=== PATIENT | male | born 1945 | race African-American/Black ===

== ENCOUNTER 2016-09-28 12:27 | Emergency (ER) | payer OTHER, MEDICAID ==
[~2016-09-28] VITALS: Ht 177.8 cm; Wt 70.8 kg
[~2016-09-28 12:27] MED LIST: ACET-8331 GT; ASCO500S14 GT; ASPI81EC97 PO; BISA10SU1 RC; CHOL500010 GT; CRAN450C GT; DOCU-67 GT; FERR140T2 GT; FOLI5CAP GT; KEP500L GT; LACO50TA GT; LACT10SO11 GT; LAM200 GT; LAM25 GT; LANS30EC3 GT; MVII GT; OLAN2.5T1 GT; PHE6.25L GT; PHEN100C3 GT; ZONI50CA2 GT; [UNRECOGNIZED DRUG - CODE] GT
[2016-09-28 12:39] VITALS: BP 154/81
--- NOTE | 2016-09-28 12:50 | NUR ---
Patient ambulated to bed 7 with livestock caretaker. RN evaluating patient at bedside.
--- NOTE | 2016-09-28 12:52 | NUR ---
71/M BIB [facility] FOR EVALUATION OF G-TUBE MALFUNCTION. HX SEIZURE DISORDER, HTN, DEVELOPMENTAL DELAY. DENIES N/V/D; SKIN IS PINK/WARM/DRY; PT ACTING NEUROLOGICALLY AT BASELINE; AMBULATES WITH W/C. LUNGS CLEAR BL; HR EVEN AND REGULAR; [facility] DENIES PT HAS ANY FEVER, CP, SOB, OR COUGH AT THIS TIME; PATIENT STATES PAIN OF 0/10 AT THIS TIME; VSS; PATIENT POSITIONED FOR COMFORT; HOB ELEVATED; BEDRAILS UP X2; BED DOWN. ER MD MADE AWARE OF PT STATUS.
--- NOTE | 2016-09-28 12:52 | NUR ---
Note undone in EDM - 09/28/16 at 1407 by [email or web address] 71/M JOSE D [facility] FOR EVALUATION OF G-TUBE MALFUNCTION. HX SEIZURE DISORDER, HTN, DEVELOPMENTAL DELAY. DENIES N/V/D; SKIN IS PINK/WARM/DRY; AAOX4 WITH EVEN AND STEADY GAIT; LUNGS CLEAR BL; HR EVEN AND REGULAR; [facility] DENIES PT HAS ANY FEVER, CP, SOB, OR COUGH AT THIS TIME; PATIENT STATES PAIN OF 0/10 AT THIS TIME; VSS; PATIENT POSITIONED FOR COMFORT; HOB ELEVATED; BEDRAILS UP X2; BED DOWN. ER MD MADE AWARE OF PT STATUS.
--- NOTE | 2016-09-28 13:00 | NUR ---
Dr. Chau evaluating patient at bedside. Addendum: 09/28/16 at 1349 by [email or web address] Amendment undone in EDM - 09/28/16 at 1351 by MED1 GRAEME CHAU DID REPACEMENT G TUBE. PT TPLERATED PROCEDURE WELL.
--- NOTE | 2016-09-28 13:05 | NUR ---
Felicity olvera in EDM - 09/28/16 at 1352 by MED1 GRAEME CHAU DID REPACEMENT G TUBE. PT TPLERATED PROCEDURE WELL.
--- NOTE | 2016-09-28 13:05 | NUR ---
ER MD DR CHAU DID REPACEMENT G TUBE. PT TOLERATED PROCEDURE WELL.
--- NOTE | 2016-09-28 13:49 | NUR ---
X RAY AT BEDSIDE.
[2016-09-28 14:21] VITALS: BP 136/78
--- NOTE | 2016-09-28 14:21 | NUR ---
Patient discharged with v/s stable. Written and verbal after care instructions given and explained. Patient verbalized understanding. Wheel Chair Assisted with to car. All questions addressed prior to discharge. Advised to follow up with PMD.
== END 2016-09-28 14:21 | disposition home or self-care (01) ==
LOC: MED 12:27
DX: Z43.1 Encounter for attention to gastrostomy (principal); I10 Essential (primary) hypertension; Z79.82 Long term (current) use of aspirin; Z79.899 Other long term (current) drug therapy
CPT/HCPCS: 43760; 74241; 99284; Q0092

== ENCOUNTER 2017-08-15 16:59 | Emergency (ER) | payer OTHER, MEDICAID ==
[~2017-08-15] VITALS: Ht 167.6 cm; Wt 83.9 kg
[~2017-08-15 16:59] MED LIST changes: -CHOL500010 GT; +CHOL500021 GT; +DOCU-299 GT; -DOCU-67 GT; +POTA20SO16 GT; -[UNRECOGNIZED DRUG - CODE] GT
[2017-08-15 17:04] VITALS: BP 116/71
[2017-08-15 19:07] VITALS: BP 117/72
== END 2017-08-15 19:07 | disposition home or self-care (01) ==
LOC: MED 16:59
DX: Z43.1 Encounter for attention to gastrostomy (principal); I10 Essential (primary) hypertension; Z79.899 Other long term (current) drug therapy; Z79.82 Long term (current) use of aspirin
CPT/HCPCS: 43760; 74241; 99284; Q0092; Q9967

== ENCOUNTER 2017-10-17 06:25 | Emergency (ER) | payer OTHER, MEDICAID ==
[~2017-10-17] VITALS: Ht 170.2 cm; Wt 81.6 kg
[2017-10-17 06:34] VITALS: BP 156/100
--- NOTE | 2017-10-17 06:38 | NUR ---
TO BED # VIA W/C.
--- NOTE | 2017-10-17 06:41 | NUR ---
72/M BIB CAREGIVER FOR GTUBE REPLACEMENT. PER CG, GT FOUND DISLODGED AT 0530 TODAY. GT SITE WITHOUT ACTIVE BLEEDING NOTED. PT WITH 20FR GTUBE. PMH: ANEMIA, HTN, SEIZURE, GTUBE Addendum: 10/17/17 at 0650 by MEDNK OLD GTUBE WITH BALLOON INTACT
--- NOTE | 2017-10-17 06:41 | NUR ---
PT TAKEN TO BED 4
--- NOTE | 2017-10-17 06:55 | NUR ---
DR BISHOP PERFORMED GTUBE REPLACEMENT, PT GABBY WELL
--- NOTE | 2017-10-17 07:00 | NUR ---
Felicity olvera in [facility] - 10/17/17 [address] Jones evaluating patient at bedside.
--- NOTE | 2017-10-17 07:01 | NUR ---
RECEIVED REPORT FROM SILVANO FLORES. DR TOSCANO DID G TUBE REPLACEMENT .PT [id number] PROCEDURE WELL. A WAITING FOR X RAY. [facility] AT BEDSIDE.
--- NOTE | 2017-10-17 07:01 | NUR ---
Note may in EDM - 10/17/17 at 0716 by [facility] RECEIVED REPORT FROM SILVANO FLORES. DR TOSCANO DID G TUBE REPLACEMENT .PT TPLERATED PROCEDURE WELL. A WAITING FOR X RAY. [facility] AT BEDSIDE.
--- NOTE | 2017-10-17 07:16 | NUR ---
X RAY AT BEDSIDE.
--- NOTE | 2017-10-17 07:27 | NUR ---
Patient being reevaluated by DR TOSCANO at bedside.
[2017-10-17 07:34] VITALS: BP 169/89
--- NOTE | 2017-10-17 07:34 | NUR ---
Patient discharged with BP 169/89; MD MADE AWARE. Written and verbal after care instructions given and explained. Patient verbalized understanding. Wheel Chair Assisted with to car. All questions addressed prior to discharge. Advised to follow up with PMD.
== END 2017-10-17 07:34 | disposition home or self-care (01) ==
LOC: MED 06:25
DX: Z43.1 Encounter for attention to gastrostomy (principal); I10 Essential (primary) hypertension
CPT/HCPCS: 43760; 74018; 99284

== ENCOUNTER 2017-12-01 09:59 | Inpatient (IN) | payer OTHER, MEDICAID ==
[~2017-12-01] VITALS: Ht 177.8 cm; Wt 70.8 kg
[~2017-12-01 09:59] MED LIST changes: +ASPI81EC97 GT; -ASPI81EC97 PO
[2017-12-01 10:20] VITALS: BP 119/72
--- NOTE | 2017-12-01 10:36 | NUR ---
bib caregiver from [facility] Assisted with c/o abdomen distention and vomitting since today. Per caregiver, patient vomitted 6 times today. Caregiver denies diarrhea or recent fevers. G-tube in place with dressing. Copious yellow discharge noted to dressing. . SKIN IS PINK/WARM/DRY; LUNGS CLEAR BL; HR EVEN AND REGULAR; caregiver DENIES ANY FEVER, CP, SOB, OR COUGH AT THIS TIME; PATIENT sitting in his wheelchair, refused to stay in bed. caregiver at side. ER MD MADE AWARE OF PT STATUS.
[2017-12-01] MEDS ORDERED: NACL 0.9% 1,000 ML IV SCH ×2 (10:49→14:50)
[2017-12-01] MEDS ORDERED: ONDANSETRON 4 MG/2 ML VIAL IVP ONE (10:50)
[2017-12-01] MEDS ORDERED: FAMOTIDINE 20 MG/2 ML VIAL IVP ONE (10:50)
[2017-12-01] MEDS ORDERED: METOCLOPRAMIDE 10 MG/2 ML INJ VIAL IVP ONE (10:50)
--- NOTE | 2017-12-01 12:10 | NUR ---
PT TAKEN TO [facility] IN [facility]
[2017-12-01 14:03] LABS: BASOPHILS % (AUTO) 0.5 % (0.0-2.0); EOSINOPHILS # (AUTO) 0.2 K/uL (0-0.4); EOSINOPHILS % (AUTO) 2.3 % (0.0-4.0); HEMATOCRIT 37.7 % (36-52); HEMOGLOBIN 12.8 g/dL (12.0-18.0); LYMPHOCYTES # (AUTO) 1.7 K/uL (2.0-11.5); LYMPHOCYTES % (AUTO) 25.6 % (20.5-51.1); MEAN CORPUSCULAR HEMOGLOBIN 33 pg (27-31); MEAN CORPUSCULAR HGB CONC 34 g/dL (33-37); MEAN CORPUSCULAR VOLUME 95.7 fL (80-94); MONOCYTES # (AUTO) 0.7 K/uL (0.8-1.0); MONOCYTES % (AUTO) 9.7 % (1.7-9.3); NEUTROPHILS # (AUTO) 4.2 K/uL (1.8-7.7); NEUTROPHILS % (AUTO) 61.9 % (42.2-75.2); PLATELET COUNT (AUTO) 220 K/uL (140-450); RED BLOOD CELL COUNT(AUTO) 3.94 MIL/uL (4.20-6.10); RED CELL DISTRIBUTION WIDTH 12.7 % (11.6-13.7); WHITE BLOOD COUNT (AUTO) 6.8 K/uL (4.8-10.8)
[2017-12-01 14:39] LABS: MAGNESIUM 2.2 mg/dL (1.8-2.4); URIC ACID 4.7 mg/dL (2.6-7.2)
[2017-12-01] MEDS ORDERED: ACETAMINOPHEN 325 MG TAB PO PRN (14:50)
[2017-12-01] MEDS ORDERED: ZOLPIDEM 5 MG TAB PO PRN (14:50)
[2017-12-01] MEDS ORDERED: MORPHINE SULFATE 2 MG/ML SYR IVP PRN (14:50)
[2017-12-01] MEDS ORDERED: ONDANSETRON 4 MG/2 ML VIAL IM/IVP PRN (14:50)
[2017-12-01] MEDS ORDERED: DOCUSATE SODIUM 100 MG GELCAP PO PRN (14:50)
[2017-12-01] MEDS ORDERED: HYDROcodone/APAP 5/325 MG 1 TAB TAB PO PRN (14:50)
[2017-12-01] MEDS ORDERED: LORazepam 2 MG/ML VIAL IM/IVP PRN (14:50)
[2017-12-01 14:56] LABS: ACETONE, SERUM NEGATIVE (NEGATIVE)
--- NOTE | 2017-12-01 14:58 | NUR ---
RECEIVED REPORT FROM [facility]: GGT WILL DELAY. NOTIFIED DR ASCENCIO.
[2017-12-01] MEDS ORDERED: BISACODYL 10 MG SUPP RC PRN (15:00)
[2017-12-01] MEDS ORDERED: PROMETHAZINE 6.25 MG/5 ML ORASYR GT PRN (15:00)
[2017-12-01] MEDS ORDERED: BISACODYL 10 MG SUPP RC SCH (15:15)
--- NOTE | 2017-12-01 15:30 | NUR ---
PT TRANSFERRED TO ROOM 123B BY MARGI ACCOMPANIED WITH RN AND EMT, REPORT GIVEN TO RAINER. PT'S WHEELCHAIR ALSO WITH PT. ALL THE PERSONAL BELONGINGS WITH CAREGIVER.
--- NOTE | 2017-12-01 15:35 | NUR ---
RECEIVED PATIENT FROM ED VIA GURNEY, PT IS AAOX1, WHEELCHAIR BOUND, IV IS ON THE RIGHT SHOULDER, #24, PATENT, INTACT, FLUSHING WELL, PT HAS G-TUBE, SOME LEAKAGE NOTED AROUND THE DRESSING, SKIN IS INTACT, NO S/S OF RESPIRATORY DISTRESS OR DISCOMFORT NOTED, SAFETY/FALL/SEIZURE PRECAUTIONS ARE IN PLACE, CALL LIGHT WITHIN REACH, WILL CONTINUE TO MONITOR.
[2017-12-01 16:00] VITALS: BP 159/83
[2017-12-01 16:16] LABS: ANION GAP 14.4 (8-16); CARBON DIOXIDE 26.6 mmol/L (21-32); CHLORIDE 102 mmol/L (98-107); CREATININE 1.3 mg/dL (0.7-1.3); GLUCOSE 111 mg/dL (74-106); SODIUM SERUM 139 mmol/L (136-145); TOTAL BILIRUBIN 0.3 mg/dL (0.0-1.0); UREA NITROGEN, BLOOD 13 mg/dL (7-18)
[2017-12-01 16:17] LABS: ALBUMIN 3.7 g/dL (3.4-5.0); AMYLASE 125 U/L (25-115); ASPARTATE AMINOTRANSFERASE 26 U/L (15-37)
[2017-12-01 16:18] LABS: LIPASE 205 U/L (73-393)
[2017-12-01 16:23] LABS: CHOL/HDL RATIO 2.2 (1-4.5); PHOSPHORUS 3.5 mg/dL (2.5-4.9); THYROID STIMULATING HORMONE 2.5 uIU/mL (0.34-3.74)
[2017-12-01] MEDS ORDERED: MAGNESIUM CITRATE 300 ML BTL PO SCH (17:00)
[2017-12-01] MEDS ORDERED: PHENYTOIN 100 MG CAPER PO SCH (17:00)
[2017-12-01] MEDS: LACTULOSE 20 GM/30 ML UDC GT SCH (18:17)
[2017-12-01] MEDS: METOCLOPRAMIDE 10 MG/2 ML INJ VIAL IVP SCH (18:18)
[2017-12-01] MEDS: SENNA 8.6 MG TAB PO SCH (18:20)
--- NOTE | 2017-12-01 19:25 | NUR ---
RECEIVED FROM AM RN IN BED . WATCHING TV. NO RESTLESSNESS NOTED. NO REPORTED VOMITING EPISODE SINCE ADMISSION. CALL LIGHT WITH IN REACH. NOT TALKING AT THIS TIME. PT. HX. OF MENTAL RETARDATION, CVA AND PSYCHOSIS. ON SEIZURE PRECAUTION. WITH PADDED BED RAILS. IVF SITE TO RIGHT SHOULDER IN PLACE AND NO INFILTRATION. AFEBRILE. TELEMETRY MONITORING. NEEDS WILL BE ANTICIPATED AND WILL BE MET. WILL BE TURNED Q 2H.
--- NOTE | 2017-12-01 19:32 | NUR ---
ENDORSED PT TO HARDWOOD FLOORING SPECIALIST NURSE FOR CONTINUITY OF CARE. PT STABLE AT THIS TIME.
[2017-12-01 20:26] VITALS: BP 153/79
[2017-12-01] MEDS: lamoTRIgine 25 MG TAB GT SCH (20:35)
[2017-12-01] MEDS: POLYETHYLENE GLYCOL 17 GM/PKT PO SCH (20:36)
[2017-12-01] MEDS: levETIRAcetam 100 MG/ML ORASYR GT SCH (20:36)
[2017-12-01 20:54] LABS: GAMMA GLUTAMYL TRANSFERASE 348 U/L (7-51)
[2017-12-01] MEDS ORDERED: DOCUSATE 100 MG/10 ML UDC PO SCH (21:00)
--- NOTE | 2017-12-01 21:35 | NUR ---
CALLED MATTHEW CARLOS FOR CONSENT RE: GT RE-INSERTION BY MD SINGH. ANSWERING PHONE FULL. CALLED RODRIGO. SÁNCHEZITY CAREGIVER, ANSWERING MACHINE TOO. CALLED VENECIA FRAZIER AND WAS ABLE TO ANSWER . STATED THAT HE IS THE VISITING NURSE OF PT. AND THAT THE SISTER IS REALLY NOT PICKING UP PHONE. "I AM ABLE TO GIVE CONSENT FOR HIM". WILL FOLLOW UP IN AM WITH QUALITY TECH.
--- NOTE | 2017-12-01 21:57 | NUR ---
CALLED SISTER SANDI CHENG AGAIN. THIS TIME SHE ANSWERED PHONE AND GAVE TELEPHONE CONSENT FOR GT RE-INSERTION.
--- NOTE | 2017-12-01 22:30 | NUR ---
PT. AWAKE AND WATCHING TV. TURNED TO SIDES .PILLOW SUPPORT TO PRESSURE AREAS. CALL LIGHT WITH IN REACH. BED ALARM ON. TELEMETRY MONITORING. FLACC 0-
[2017-12-02] VITALS (7 sets, daily range): BP systolic 123–151; BP diastolic 69–84
--- NOTE | 2017-12-02 00:10 | NUR ---
PT. TURNED TO SIDES BY CNAS. KEPT CLEAN AND DRY. TELEMETRY MONITORING. PILLOW SUPPORT TO PRESSURE AREAS.
--- NOTE | 2017-12-02 01:26 | NUR ---
PT. SLEEPING AT THIS TIME. NO RESTLESSNESS.
[2017-12-02] MEDS: METOCLOPRAMIDE 10 MG/2 ML INJ VIAL IVP SCH ×4 (01:42→17:25)
--- NOTE | 2017-12-02 04:09 | NUR ---
PT. TURNED BY CNAS Q 2H. FLACC 0-. TELEMETRY MONITORING. NO NOTED VOMITING. NO RESTLESSNESS NOTED. KEPT CLEAN AND DRY. NPO EXCEPT MEDICATIONS STATUS.
--- NOTE | 2017-12-02 06:04 | NUR ---
BLOOD WORKS DONE BY FORESTRY AID TECHNICIAN. FLACC 0-. TELEMETRY MONITORING. IVF SITE NO INFILTRATION NOTED. NO VOMITING THIS SHIFT. HAD BM THIS AM. NEEDS ANTICIPATED AND MET. TURNED Q 2H. TOTAL CARE.
--- NOTE | 2017-12-02 06:11 | NUR ---
PT. PER CNAS HAD A BIG SOFT BOWEL MOVEMENT FOR THIS SHIFT. NEEDS ANTICIPATED AND MET.
[2017-12-02 06:43] LABS: EOSINOPHILS # (AUTO) 0.3 K/uL (0-0.4); HEMOGLOBIN 14.2 g/dL (12.0-18.0); MONOCYTES # (AUTO) 0.8 K/uL (0.8-1.0); RED BLOOD CELL COUNT(AUTO) 4.29 MIL/uL (4.20-6.10); WHITE BLOOD COUNT (AUTO) 6.4 K/uL (4.8-10.8)
[2017-12-02 06:49] LABS: BASOPHILS # (AUTO) 0.1 K/uL (0.00-0.22); BASOPHILS % (AUTO) 1.2 % (0.0-2.0); EOSINOPHILS % (AUTO) 5.3 % (0.0-4.0); HEMATOCRIT 41.5 % (36-52); LYMPHOCYTES # (AUTO) 2.1 K/uL (2.0-11.5); LYMPHOCYTES % (AUTO) 32.9 % (20.5-51.1); MEAN CORPUSCULAR HEMOGLOBIN 33 pg (27-31); MEAN CORPUSCULAR HGB CONC 34 g/dL (33-37); MEAN CORPUSCULAR VOLUME 96.6 fL (80-94); MONOCYTES % (AUTO) 11.7 % (1.7-9.3); NEUTROPHILS # (AUTO) 3.2 K/uL (1.8-7.7); NEUTROPHILS % (AUTO) 48.9 % (42.2-75.2); PLATELET COUNT (AUTO) 212 K/uL (140-450); RED CELL DISTRIBUTION WIDTH 12.7 % (11.6-13.7)
--- NOTE | 2017-12-02 07:20 | NUR ---
RECEIVED REPORT FROM THE MOTORCYCLE SERVICE TECHNICIAN NURSE AT BEDSIDE FOR CONTINUITY OF CARE. PT IS AWAKE. INTRODUCED MYSELF AND UPDATED THE BOARD. PT APHASIC W/ MENTAL DELAY. HE HAS HIS HELMET ON. IV ON R SHOULDER 24G, NS AT 60ML INFUSING. V/S WITHIN NORMAL RANGE. DENIES PAIN. WHEELCHAIR AT BEDSIDE. PT HAS A LEAKING GTUBE PER MOTORCYCLE SERVICE TECHNICIAN. PT IS NPO EXCEPT MEDS FOR GTUBE REINSERTION TODAY. PT ALSO HAS FNS CONSULT AND URINE COLLECTION FOR URINE ANALYSIS. WILL NEED TO STRAIGHT CATH. SKIN INTACT. WILL CONTINU TO MONITOR PT.
[2017-12-02 07:23] LABS: ANION GAP 14.4 (8-16); CARBON DIOXIDE 24.1 mmol/L (21-32); CHLORIDE 105 mmol/L (98-107); CREATININE 0.9 mg/dL (0.7-1.3); GLUCOSE 99 mg/dL (74-106); POTASSIUM 3.5 mmol/L (3.5-5.1); SODIUM SERUM 140 mmol/L (136-145); UREA NITROGEN, BLOOD 8 mg/dL (7-18)
[2017-12-02 07:27] LABS: MAGNESIUM 2.3 mg/dL (1.8-2.4); PHOSPHORUS 3.2 mg/dL (2.5-4.9)
[2017-12-02] MEDS ORDERED: OLANZapine 2.5 MG TAB GT SCH (09:00)
[2017-12-02] MEDS ORDERED: SENNA 8.6 MG TAB PO SCH (09:00)
[2017-12-02] MEDS ORDERED: LANSOPRAZOLE 30 MG CAPDR GT SCH (09:00)
[2017-12-02] MEDS ORDERED: LACTULOSE 20 GM/30 ML UDC GT SCH (09:00)
[2017-12-02] MEDS: DEXT 5% /NACL 0.9% 1,000 ML IV SCH (09:59)
[2017-12-02] MEDS: PHENYTOIN 100 MG/4 ML UDC GT SCH ×4 (10:00→17:24)
[2017-12-02] MEDS: LACTULOSE 20 GM/30 ML UDC GT SCH ×4 (10:00→17:25)
[2017-12-02] MEDS: levETIRAcetam 100 MG/ML ORASYR GT SCH ×2 (10:00→20:42)
[2017-12-02] MEDS: lamoTRIgine 25 MG TAB GT SCH ×2 (10:01→20:42)
[2017-12-02] MEDS: POLYETHYLENE GLYCOL 17 GM/PKT PO SCH (10:01)
[2017-12-02] MEDS: TAMSULOSIN 0.4 MG CAP GT SCH (10:02)
[2017-12-02] MEDS: SENNA 8.6 MG TAB PO SCH ×4 (10:07→17:25)
--- NOTE | 2017-12-02 10:20 | NUR ---
ADMINISTERED MORNING MEDS VIA GTUBE. CHECKED FOR PLACEMENT, RESIDUAL-0, PATENCY. SOME OF THE MEDS WEREN'T AVAILABLE IN THE [facility], HAD TO GO TO THE PHARMACY TO GET MEDS. REASON WHY MEDS WERE GIVEN LATE. PT TOLERATED WELL. WILL CONTINUE TO MONITOR PT.
--- NOTE | 2017-12-02 10:43 | NUR ---
PATIENT HAS BEEN SCREENED AND CATEGORIZED HIGH NUTRITION RISK. PATIENT WILL BE SEEN WITHIN 1-2 DAYS OF ADMISSION. 12/02/17 12/03/[address]
[2017-12-02] MEDS ORDERED: VITD1000 GT (11:43)
[2017-12-02] MEDS ORDERED: AMLO2.5T GT (11:43)
[2017-12-02] MEDS ORDERED: MIRABULK GT (11:43)
[2017-12-02] MEDS ORDERED: ATOR20TA40 PO (11:45)
--- NOTE | 2017-12-02 12:35 | NUR ---
DR. SINGH IS HERE. ASSESSED THE GTUBE. REMOVED THE OLD GTUBE AND REINSERTED THE NEW GTUBE. WILL ORDER KUB AND WILL AWAIT RESULTS TO GET THE GO AHEAD TO USE THE GTUBE. GAVE REGLAN. WILL HOLD [id number] MEDS AND AWAIT XRAY RESULTS.
[2017-12-02 13:08] LABS: BARBITURATE, URINE NEG. ng/ml (NEG <=200); BENZODIAZEPINE, URINE NEG. ng/mL (NEG <=200); CANNABINOID, URINE NEG. ng/mL (NEG <=50); COCAINE, URINE NEG. ng/mL (NEG <=300); OPIATE, URINE NEG. ng/mL (NEG <=2000); PHENCYCLIDINE SCREEN,URINE NEG. ng/mL (NEG <=25)
[2017-12-02 13:16] LABS: BILIRUBIN,URINE NEGATIVE (NEGATIVE); BLOOD, URINE NEGATIVE (NEGATIVE); LEUKOCYTE ESTERASE ,URINE NEGATIVE (NEGATIVE); NITRITE, URINE NEGATIVE (NEGATIVE); PH,URINE 7.5 (5.0-9.0); UGLUCOSE NEGATIVE (NEGATIVE)
[2017-12-02 13:17] LABS: APPEARANCE,URINE SLIGHTLY HAZY (CLEAR); COLOR,URINE YELLOW (YELLOW)
[2017-12-02 13:18] LABS: RBC,URINE NONE SEEN /HPF (0-5)
--- NOTE | 2017-12-02 14:29 | NUR ---
CALLED [facility] TO FIND OUT WHEN THEY WERE PLANNING TO DO THE KUB TO CHECK PLACEMENT OF GTUBE. THEY WILL BE COMING NOW. WILL CONTINUE TO MONITOR PT.
[2017-12-02] MEDS ORDERED: RANI150C GT (14:46)
--- NOTE | 2017-12-02 15:46 | NUR ---
12/02/17 RD INITIAL ASSESSMENT COMPLETED PLEASE REFER TO NUTRITION ASSESSMENT UNDER CARE ACTIVITY FOR ESTIMATED NUTRITIONAL NEEDS. 1. WHEN/IF MEDICALLY STABLE TO BEGIN NUTRITION, CONSIDER ADVANCING TF TOLERATED TO JEVITY 1.2 @ GOAL RATE 65ML/H WITH 130 ML H2O FLUSH Q4H --THIS WILL PROVIDE 1872 KCAL (100% OF ESTIMATED ENERGY REQUIREMENTS), 86.58 GM PRO (101% OF ESTIMATED PROTEIN REQUIREMENTS), AND 1778 ML FLUIDS --BEGIN TF AT 20ML/H AND INCREASE BY 10ML Q4-6H UNTIL GOAL RATE ACHIEVED 2. RD TO FOLLOW-UP 2-3 DAYS, HIGH RISK DARREN ZAMARRIPA RD
--- NOTE | 2017-12-02 17:34 | NUR ---
ORDERS FOR USE OF GTUBE ENTERED. ADMINISTERED [id number] MEDS. CHECKED FOR PLACEMENT, RESIDUAL-0, AND PATENCY. PT TOLERATED WELL. WILL START FEEDING SOON FNS BRINGS IT TO THE FLOOR. JEVITY 1.2 START W/ 10ML/HR AND 130ML OF H20 FOR FLUSH Q 4 HRS. INCREASE FEEDING EVERY FEW HOURS UNTIL REACHING 65ML/HR.
--- NOTE | 2017-12-02 19:25 | NUR ---
RECEIVED FROM AM RN IN BED. AWAKE AND EYES OPEN. NONE VERBAL. TOTAL CARE. PT. NEEDS WILL BE ANTICIPATED AND WILL BE MET. NEW GT INSERTED BY MD SINGH IN AM SHIFT. GT FEEDING STARTED AT 20 ML AND INFUSING AT THIS TIME . BED ALARM ON. AFEBRILE.
--- NOTE | 2017-12-02 19:30 | NUR ---
ENDORSED PT TO THE LEATHER PRODUCTION MACHINE OPERATOR NURSE AT BEDSIDE FOR CONTINUITY OF CARE. PT IS IN STABLE CONDITION. CALLED RAILWAY TRACTION LINE WORKER TO BRING A NEW FEEDING PUMP. THIS ONE IN THE ROOM IS BROKEN. NEW ONE AT THE NURSES STATION. ENDORSED IT TO LEATHER PRODUCTION MACHINE OPERATOR.
--- NOTE | 2017-12-02 22:48 | NUR ---
TURNED TO SIDES BY WOOD ROUTER AND NURSE Q 2H. HOB UP 30 DEGREES FOR ASPIRATION PRECAUTIONS. NEEDS WILL BE ANTICIPATED AND MET. TOTAL CARE. NO RESIDUAL AT THIS TIME FROM GT FEEDING.
[2017-12-03] MEDS: DEXT 5% /NACL 0.9% 1,000 ML IV SCH ×2 (00:05→04:45)
[2017-12-03] MEDS: METOCLOPRAMIDE 10 MG/2 ML INJ VIAL IVP SCH ×4 (01:13→17:50)
--- NOTE | 2017-12-03 01:21 | NUR ---
SLEEPING AT THIS TIME. FLACC O-. NO RESTLESSNESS. HOB UP 30 DEGREES FOR ASPIRATION PRECAUTIONS. TURNED TO SIDES Q 2H.
[2017-12-03 05:20] VITALS: BP 148/70
--- NOTE | 2017-12-03 06:16 | NUR ---
SLEPT WELL THIS SHIFT. TURNED Q 2H BY HEAD OF MARKETING AND NURSE. HOB UP 30 DEGREES FOR ASPIRATION PRECAUTIONS. RESIDUAL FROM GT 10 ML AT THIS TIME. PT. AT 50 ML /H OF JEVITY 1.2 . TOLERATING FEEDING WELL. NO VOMITING NOTED THIS SHIFT.
[2017-12-03 07:07] LABS: BASOPHILS % (AUTO) 0.5 % (0.0-2.0); EOSINOPHILS # (AUTO) 0.5 K/uL (0-0.4); EOSINOPHILS % (AUTO) 6.1 % (0.0-4.0); HEMATOCRIT 41.3 % (36-52); HEMOGLOBIN 14.1 g/dL (12.0-18.0); LYMPHOCYTES # (AUTO) 1.9 K/uL (2.0-11.5); LYMPHOCYTES % (AUTO) 23.7 % (20.5-51.1); MEAN CORPUSCULAR HEMOGLOBIN 33 pg (27-31); MEAN CORPUSCULAR HGB CONC 34 g/dL (33-37); MEAN CORPUSCULAR VOLUME 96.9 fL (80-94); MONOCYTES % (AUTO) 12.7 % (1.7-9.3); NEUTROPHILS # (AUTO) 4.7 K/uL (1.8-7.7); PLATELET COUNT (AUTO) 238 K/uL (140-450); RED BLOOD CELL COUNT(AUTO) 4.27 MIL/uL (4.20-6.10); RED CELL DISTRIBUTION WIDTH 12.8 % (11.6-13.7); WHITE BLOOD COUNT (AUTO) 8.2 K/uL (4.8-10.8)
--- NOTE | 2017-12-03 07:15 | NUR ---
RECEIVED REPORT FROM NIGHTSHIFT NURSE AT BEDSIDE. PATIENT IS APHASIC. PATIENT PRESENTS IN SEMI-FOWLERS TO HIGH-FOWLERS POSITION WITH A HELMET ON. SEIZURE PRECAUTIONS IN PLACE. FLACC SCORE IS 0 AT THIS TIME. NO RESPIRATORY DISTRESS NOTED. PATIENT HAS A 24 G IV NOTED ON HIS RIGHT UPPER ARM RUNNING D5 NS AT 60 ML/HR. PATIENT HAS G-TUBE IN PLACE WITH TUBE FEED RUNNING AT 50 ML/HR. UPDATED BOARD IN PATIENT'S ROOM. LOWERED BED TO LOWEST SETTING. BED ALARM ACTIVE. WILL CONTINUE TO MONITOR PATIENT. Addendum: 12/03/17 at 0811 by Darvin Dalton II, RN PATIENT ABLE TO SPEAK. PATIENT ALERT AND ORIENTED X2-3
[2017-12-03 08:00] VITALS: BP 155/77
--- NOTE | 2017-12-03 08:05 | NUR ---
INCREASED PATIENT'S FEEDING TO 60 ML/HR. PATIENT TOLERATING WELL.
[2017-12-03] MEDS: ATORVASTATIN 20 MG TAB GT SCH (08:14)
[2017-12-03] MEDS: CHOLECALCIFEROL 1,000 IU TAB GT SCH (08:14)
[2017-12-03] MEDS: FERROUS SULFATE 300 MG/5 ML UDC GT SCH (08:14)
[2017-12-03] MEDS: FOLIC ACID 1 MG TAB GT SCH (08:14)
[2017-12-03] MEDS: LACTOBACILLUS RHAMNOSUS GG 1 EACH CAP PO SCH (08:14)
[2017-12-03] MEDS: ASPIRIN 81 MG TAB.CHEW GT SCH (08:15)
[2017-12-03] MEDS: amLODIPine 5 MG TAB GT SCH (08:15)
[2017-12-03] MEDS: TAMSULOSIN 0.4 MG CAP GT SCH (08:15)
[2017-12-03] MEDS: lamoTRIgine 25 MG TAB GT SCH ×2 (08:15→20:30)
[2017-12-03] MEDS: LACTULOSE 20 GM/30 ML UDC GT SCH ×3 (08:16→16:09)
[2017-12-03] MEDS: levETIRAcetam 100 MG/ML ORASYR GT SCH ×2 (08:16→20:30)
--- NOTE | 2017-12-03 08:16 | NUR ---
PATIENT TOOK AM MEDICATIONS. PATIENT TOLERATED WELL.
[2017-12-03] MEDS: PHENYTOIN 100 MG/4 ML UDC GT SCH ×3 (08:17→16:09)
[2017-12-03 08:27] LABS: ANION GAP 11.1 (8-16); CARBON DIOXIDE 27.5 mmol/L (21-32); CHLORIDE 106 mmol/L (98-107); GLUCOSE 118 mg/dL (74-106); POTASSIUM 3.6 mmol/L (3.5-5.1); SODIUM SERUM 141 mmol/L (136-145); UREA NITROGEN, BLOOD 7 mg/dL (7-18)
[2017-12-03 08:36] LABS: MAGNESIUM 2.3 mg/dL (1.8-2.4); PHOSPHORUS 2.8 mg/dL (2.5-4.9)
[2017-12-03] MEDS: POLYETHYLENE GLYCOL 17 GM/PKT GT SCH (09:00)
[2017-12-03] MEDS: SENNA 8.6 MG TAB PO SCH ×3 (09:00→16:09)
--- NOTE | 2017-12-03 10:05 | NUR ---
PATIENT RESTING AT THIS TIME. NO DISTRESS NOTED. WILL CONTINUE TO MONITOR PATIENT.
[2017-12-03] MEDS: NACL 0.9% 1,000 ML IV SCH (11:59)
[2017-12-03 12:00] VITALS: BP 151/81
--- NOTE | 2017-12-03 12:20 | NUR ---
INCREASED PATIENT'S TUBE FEEDING TO 65 ML/HR. PATIENT TOLERATING WELL.
--- NOTE | 2017-12-03 14:25 | NUR ---
PATIENT ASLEEP AT THIS TIME. NO DISTRESS NOTED. WILL CONTINUE TO MONITOR PATIENT.
--- NOTE | 2017-12-03 17:00 | NUR ---
PATIENT ASLEEP AT THIS TIME. NO DISTRESS NOTED. WILL CONTINUE TO MONITOR PATIENT.
[2017-12-03 18:00] VITALS: BP 149/80
--- NOTE | 2017-12-03 19:25 | NUR ---
GAVE REPORT TO NIGHTSHIFT NURSE AT BEDSIDE. PATIENT IN STABLE CONDITION.
--- NOTE | 2017-12-03 19:26 | NUR ---
RECEIVED REPORT FROM DAYSSCFT NURSE AT BEDSIDE FOR CONTINUITY OF CARE. PT AAOX2. PT IV NOTED RIGHT CLOSE TO ARMPIT NS AT 20ML/HR. PT IS INTELLECTUALLY DISABLED. HAS G-TUBE WITH TUBE FEEDING FORMULA JEVITY 1.2 RUNNING AT 65ML/HR WITH 130 H2O Q4H. BED LOWERED BED ALARM ACTIVATED. CALL LIGHT WITHIN REACH WILL CONTINUE TO MONITOR.
[2017-12-03 20:00] VITALS: BP 155/84
[2017-12-04] VITALS: BP 141/71
[2017-12-04] MEDS: METOCLOPRAMIDE 10 MG/2 ML INJ VIAL IVP SCH ×4 (01:15→17:24)
--- NOTE | 2017-12-04 01:30 | NUR ---
ADMIN NEW FEEDING FORMULA TO GTUBE. PT FEEDING IS AT GOAL SET: 65ML/HR FEEDING FORMULA & H20 130 Q4H. WILL CONTINUE TO MONITOR.
[2017-12-04 04:00] VITALS: BP 158/91
--- NOTE | 2017-12-04 07:11 | NUR ---
RECEIVED REPORT FROM NIGHTSHIFT NURSE AT BEDSIDE. PATIENT PRESENTS IN SEMI-FOWLERS POSITION. NO DISTRESS NOTED FROM PATIENT. FLACC SCORE 0. PATIENT HAS A GTUBE IN PLACE RUNNING 65 ML/HR JEVITY 1.2. G-TUBE FLUSHING WELL AND PATENT. PATIENT HAS AN IV NOTED ON HIS RIGHT UPPER ARM RUNNING NORMAL SALINE AT 20 ML/HR. PATIENT IS ON SEIZURE PRECAUTION. LOWERED BED TO LOWEST SETTING. UPDATED BOARD IN PATIENT'S ROOM. BED ALARM ACTIVE. PATIENT'S ROOM NEAR THE NURSING STATION. WILL CONTINUE TO MONITOR PATIENT.
--- NOTE | 2017-12-04 07:17 | NUR ---
ENDORSED PLAN OF CARE TO DAYSHIFT NURSE FOR CONTINUITY OF CARE.
[2017-12-04 08:00] VITALS: BP 155/87
[2017-12-04] MEDS: POLYETHYLENE GLYCOL 17 GM/PKT GT SCH (09:00)
[2017-12-04] MEDS: PHENYTOIN 100 MG/4 ML UDC GT SCH ×3 (09:11→16:11)
[2017-12-04] MEDS: FERROUS SULFATE 300 MG/5 ML UDC GT SCH (09:11)
[2017-12-04] MEDS: levETIRAcetam 100 MG/ML ORASYR GT SCH ×2 (09:11→21:08)
[2017-12-04] MEDS: lamoTRIgine 25 MG TAB GT SCH ×2 (09:11→21:09)
[2017-12-04] MEDS: CHOLECALCIFEROL 1,000 IU TAB GT SCH (09:11)
[2017-12-04] MEDS: LACTULOSE 20 GM/30 ML UDC GT SCH ×3 (09:11→16:11)
[2017-12-04] MEDS: TAMSULOSIN 0.4 MG CAP GT SCH (09:12)
[2017-12-04] MEDS: amLODIPine 5 MG TAB GT SCH (09:12)
[2017-12-04] MEDS: ATORVASTATIN 20 MG TAB GT SCH (09:13)
[2017-12-04] MEDS: ASPIRIN 81 MG TAB.CHEW GT SCH (09:13)
[2017-12-04] MEDS: LACTOBACILLUS RHAMNOSUS GG 1 EACH CAP PO SCH (09:13)
[2017-12-04] MEDS: FOLIC ACID 1 MG TAB GT SCH (09:14)
--- NOTE | 2017-12-04 09:26 | NUR ---
PATIENT TOOK ALL AM MEDICATIONS. PATIENT TOLERATED WELL.
[2017-12-04] MEDS ORDERED: [UNRECOGNIZED DRUG - CODE] PO (10:33)
[2017-12-04] MEDS ORDERED: LACT1.4C PO (10:33)
--- NOTE | 2017-12-04 10:50 | NUR ---
Medical Staff Manager Notes: I attempted to contact patient's Sister Mary Liu at . No response therefore; These medical writer left her contact Information, and a MGS requesting a call back.
--- NOTE | 2017-12-04 11:20 | NUR ---
PATIENT RESTING. NO DISTRESS NOTED.
[2017-12-04 12:00] VITALS: BP 148/68
[2017-12-04] MEDS: SENNA 8.6 MG TAB PO SCH ×3 (12:05→16:11)
[2017-12-04] MEDS: NACL 0.9% 1,000 ML IV SCH (12:16)
--- NOTE | 2017-12-04 13:28 | NUR ---
PATIENT RESTING AT THIS TIME. NO DISTRESS NOTED. WILL CONTINUE TO MONITOR PATIENT.
[2017-12-04 16:00] VITALS: BP 138/75
--- NOTE | 2017-12-04 16:20 | NUR ---
NO SIGNS OF DISTRESS. WILL CONTINUE TO MONITOR PATIENT.
--- NOTE | 2017-12-04 18:22 | NUR ---
PATIENT RESTING AT THIS TIME. NO DISTRESS NOTED. WILL CONTINUE TO MONITOR PATIENT.
--- NOTE | 2017-12-04 19:27 | NUR ---
GAVE REPORT TO NIGHTSHIFT NURSE AT BEDSIDE. PATIENT IN STABLE CONDITION.
--- NOTE | 2017-12-04 19:28 | NUR ---
RECEIVED PT IN STABLE CONDITION FROM AM NURSE. MED SURG PT. BEDREST. WITH HELMET FOR SEIZURE PRECAUTION. NO S/S OF ANY DISCOMFORT NOR PAIN NOTED. WITH IVF INFUSING WELL ON THE LT FA#24. CLEAR AND PATENT. GETTING GT FEEDING JEVITY 1.2 ANN MARIE @65 ML /HR. TOLERATING WELL. INCONTINENT OF STOOL AND URINE. BED ON LOW POSITION. CALL LIGHT PLACED WITHIN EASY REACH. FREQUENT ROUNDS NEEDED. WILL CONTINUE TO MONITOR.
--- NOTE | 2017-12-04 21:20 | NUR ---
GT FEEDING TOLERATING WELL. NEW JEVITY 1.2 ANN MARIE JUST STARTED. NO RESIDUAL NOTED.
[2017-12-05] MEDS: METOCLOPRAMIDE 10 MG/2 ML INJ VIAL IVP SCH ×2 (00:23→06:53)
[2017-12-05 00:27] VITALS: BP 153/88
--- NOTE | 2017-12-05 01:00 | NUR ---
PT HAD A LARGE LOOSE BM IN DARK GREENISH COLOR. CLEANED AND KEPT DRY. REPOSITIONED FOR COMFORT.
--- NOTE | 2017-12-05 02:30 | NUR ---
PT IS SLEEPING AT THIS TIME. NO S/S OF ANY DISCOMFORT NOR DISTRESS NOTED.
--- NOTE | 2017-12-05 04:30 | NUR ---
PTM IS ASLEEP. NO S/S OF ANY DISCOMFORT NOTED. WILL CONTINUE TO MONITOR.
--- NOTE | 2017-12-05 06:50 | NUR ---
THIS TIME PT IS AWAKE. WITH NO S/S OF ANY DISTRESS NOTED.
--- NOTE | 2017-12-05 07:33 | NUR ---
ENDORSED PT IN A STABLE CONDITION TO AM NURSE.
--- NOTE | 2017-12-05 07:35 | NUR ---
RECEIVED BEDSIDE REPORT FROM SECURITY PATROL DRIVER NURSE. PATIENT IS SLEEPING. NO SIGNS OF DISTRESS ON ROOM AIR. HE HAS A HELMET FOR SEIZURES. G TUBE IS CLEAN, DRY AND INTACT. INFUSING JEVITY AT 65ML/HR W WATER FLUSH OF 130 Q4HRS. SKIN IS INTACT. PATIENT IS INCONTINENT. HE HAD 3 LOOSE STOOLS LAST NIGHT. L FA 24G INFUSING NS AT 20. CLEAN, DRY AND INTACT. PATIENT UNABLE TO AMBULATE. HE IS CONTRACTED FROM HX CVA. FALL RISK IN PLACE. SEIZURE PRECAUTIONS IN PLACE. BED IN LOW POSITION. CALL LIGHT WITHIN REACH. WILL CONTINUE TO MONITOR
[2017-12-05] MEDS ORDERED: [UNRECOGNIZED DRUG - CODE] PO (07:59)
[2017-12-05 08:00] VITALS: BP 144/81
[2017-12-05] MEDS: POLYETHYLENE GLYCOL 17 GM/PKT GT SCH (09:00)
[2017-12-05] MEDS: lamoTRIgine 25 MG TAB GT SCH (09:00)
[2017-12-05] MEDS: SENNA 8.6 MG TAB PO SCH (09:00)
[2017-12-05] MEDS: LACTULOSE 20 GM/30 ML UDC GT SCH (09:00)
[2017-12-05] MEDS: amLODIPine 5 MG TAB GT SCH (09:36)
[2017-12-05] MEDS: ASPIRIN 81 MG TAB.CHEW GT SCH (09:36)
[2017-12-05] MEDS: FOLIC ACID 1 MG TAB GT SCH (09:37)
[2017-12-05] MEDS: LACTOBACILLUS RHAMNOSUS GG 1 EACH CAP PO SCH (09:37)
[2017-12-05] MEDS: FERROUS SULFATE 300 MG/5 ML UDC GT SCH (09:37)
[2017-12-05] MEDS: CHOLECALCIFEROL 1,000 IU TAB GT SCH (09:37)
[2017-12-05] MEDS: ATORVASTATIN 20 MG TAB GT SCH (09:38)
[2017-12-05] MEDS: TAMSULOSIN 0.4 MG CAP GT SCH (09:38)
[2017-12-05] MEDS: PHENYTOIN 100 MG/4 ML UDC GT SCH (09:38)
[2017-12-05] MEDS: levETIRAcetam 100 MG/ML ORASYR GT SCH (09:38)
--- NOTE | 2017-12-05 09:48 | NUR ---
CHECKED GTUBE FOR PLACEMENT USING SWOOSH. SWOOSH IS HEARD. NO RESIDUAL. CRUSHED ALL MEDS AND ADMINISTERED. FLUSHED. DID NOT GIVE STOOL SOFTNER/LAXATIVE BECAUSE PATIENT HAS HAD LOOSE STOOLS. BED IN LOW POSITION. WILL CONTINUE TO MONITOR THE PATIENT
--- NOTE | 2017-12-05 10:00 | NUR ---
Chorus Dancer Notes: I contacted Patient's CustodialManager Truck Mr. Blayne Seth at to inform him that patient is ready for discharge today 12/05/17 and to coordinate Patient's sampler pickup time by long-term transportation. Mr. Cisneros agreed and stated that he can come sampler pickup Patient at about 11:30am today. I thanked him for his information and ended the call. MARK BERMUDEZ was made aware.
--- NOTE | 2017-12-05 10:30 | NUR ---
TRIED CALLING SISTER. SHE DID NOT ANSWER. FREDDIE THE COPY CHASER SAID HE WILL KEEP HER UPDATED.
--- NOTE | 2017-12-05 11:40 | NUR ---
GAVE BEDSIDE REPORT TO FREDDIE, HIS SCIENCE INTERPRETER, PATIENT IN STABLE CONDITION. HE LEFT W HIS WALKER. EDUCATED FREDDIE AND PATIENT ON DISEASE, ABN S/SX AND WHEN TO GO TO THE ER, HOW TO KEEP GTUBE CLEAN AND DRY, EDUCATED ON MEDS AND GAVE PRESCRIPTIONS, FREDDIE SIGNED PAPERWORK. VERBALIZED UNDERSTANDING. REMOVED IV, IV TIP IS INTACT. ID BANDS REMOVED. PATIENT LEFT IN STABLE CONDITION.
== END 2017-12-05 11:40 | disposition home or self-care (01) | DRG 393 ==
LOC: MED 09:59 → MTU 14:50
PROVIDERS: ADMIT General Practice; ATTEND General Practice
PROC: 0D20XUZ Change Feeding Device in Upper Intestinal Tract, External Approach (ICD-10-PCS; principal; 2017-12-02)
DX: K94.23 Gastrostomy malfunction (principal); R53.2 Functional quadriplegia; N13.30 Unspecified hydronephrosis; N39.0 Urinary tract infection, site not specified; J98.11 Atelectasis; G40.909 Epilepsy, unspecified, not intractable, without status epilepticus; K59.00 Constipation, unspecified; I10 Essential (primary) hypertension; F32.9 Major depressive disorder, single episode, unspecified; E78.5 Hyperlipidemia, unspecified; Y83.8 Other surgical procedures as the cause of abnormal reaction of the patient, or of later complication, without mention of misadventure at the time of the procedure
CPT/HCPCS: 36415; 71045; 74241; 76705; 76770; 80048; 80053; 80305; 81001; 82009; 82140; 82150; 82948; 82977; 83036; 83605; 83690; 83735; 83880; 84100; 84134; 84443; 84550; 85025; 85610; 85730; 87081; 87086; 87186; 93005; 96361; 96374; 96375; 99285; C1758; J0696; J2405; J2765; J3490; J7030; J7042; J7060; Q0092

== ENCOUNTER 2018-06-26 16:27 | Emergency (ER) | payer OTHER, MEDICAID ==
[~2018-06-26] VITALS: Ht 177.8 cm; Wt 72.6 kg
[~2018-06-26 16:27] MED LIST changes: +AMLO2.5T GT; +ATOR20TA40 PO; -CHOL500021 GT; +LACT1.4C PO; -LANS30EC3 GT; +MIRABULK GT; -OLAN2.5T1 GT; +RANI150C GT; +VITD1000 GT; +[UNRECOGNIZED DRUG - CODE] PO
[2018-06-26 16:42] VITALS: BP 142/78
--- NOTE | 2018-06-26 16:48 | NUR ---
VSS, WHEELCHAIR ASSISTED TO LOBBY BY WORKPLACE RELATIONS ADVISER.
--- NOTE | 2018-06-26 17:11 | NUR ---
PATIENT WHEELCHAIR ASSISTED TO BED 1 AT THIS TIME.
--- NOTE | 2018-06-26 17:15 | NUR ---
72 Y M BIB GEOSPATIAL IMAGE ANALYST, PT G-TUBE HAS DRAINAGE COMING FROM SITE, WAS NOTICED THIS MORNING. DRAINAGE GREEN, YELLOW IN COLOR, -SWELLING, -EDEMA, COOL UPON TOUCH BELLY IS ROUND, DISTENDED, SOFT, ACTIVE BOWEL SOUNDS X 4 QUADRANTS, LAST BM 06/25/18, GCS 13, ALERT AWAKE NONVERBAL, VSS AT THIS TIME BED IS DOWN, LOCKED, LOWERED, BED RAIL X 2, SEIZURE PRECAUTIONS IN PLACE, ERMD NOTIFIED OF PATIENTS STATUS RX: PROMETHAZINE, SILACE, VINPAT, RANITIDINE, TYLENOL, BISACODYL, LEVETIRACETAIN, ASPIRIN,FLORIC ACID, HX: INTELLECTUAL DISABILITY, SEIZURES, QUADRIPLEGIA, HTN, ANEMIA, VISUAL IMPAIRMENT, GERD, DEPRESSION, DUODENAL ULCER
--- NOTE | 2018-06-26 17:20 | NUR ---
LAB AT BEDSIDE
--- NOTE | 2018-06-26 17:34 | NUR ---
ekg being done on pt
--- NOTE | 2018-06-26 17:43 | NUR ---
RD AT BEDSIDE
[2018-06-26 17:57] LABS: BASOPHILS % (AUTO) 0.7 % (0.0-2.0); EOSINOPHILS # (AUTO) 0.3 K/uL (0-0.4); EOSINOPHILS % (AUTO) 5.2 % (0.0-4.0); HEMATOCRIT 38.6 % (36-52); HEMOGLOBIN 12.8 g/dL (12.0-18.0); LYMPHOCYTES # (AUTO) 1.6 K/uL (2.0-11.5); LYMPHOCYTES % (AUTO) 30.4 % (20.5-51.1); MEAN CORPUSCULAR HEMOGLOBIN 32 pg (27-31); MEAN CORPUSCULAR HGB CONC 33 g/dL (33-37); MEAN CORPUSCULAR VOLUME 96.1 fL (80-94); NEUTROPHILS # (AUTO) 2.3 K/uL (1.8-7.7); NEUTROPHILS % (AUTO) 44.7 % (42.2-75.2); PLATELET COUNT (AUTO) 245 K/uL (140-450); RED BLOOD CELL COUNT(AUTO) 4.01 MIL/uL (4.20-6.10); RED CELL DISTRIBUTION WIDTH 12.7 % (11.6-13.7); WHITE BLOOD COUNT (AUTO) 5.2 K/uL (4.8-10.8)
--- NOTE | 2018-06-26 18:01 | NUR ---
URINE COLLECTED BY CATH AND SENT TO LAB
[2018-06-26 18:11] LABS: PROTHROMBIN TIME 9.8 secs (10.8-13.4)
[2018-06-26 18:14] LABS: CARBON DIOXIDE 26.5 mmol/L (21-32); CHLORIDE 102 mmol/L (98-107); GLUCOSE 149 mg/dL (74-106); POTASSIUM 3.5 mmol/L (3.5-5.1); SODIUM SERUM 137 mmol/L (136-145); UREA NITROGEN, BLOOD 16 mg/dL (7-18)
[2018-06-26 18:16] LABS: ALBUMIN 3.1 g/dL (3.4-5.0); ASPARTATE AMINOTRANSFERASE 13 U/L (15-37); TOTAL BILIRUBIN 0.2 mg/dL (0.0-1.0)
[2018-06-26 18:18] LABS: APPEARANCE,URINE CLEAR (CLEAR); BILIRUBIN,URINE NEGATIVE (NEGATIVE); BLOOD, URINE NEGATIVE (NEGATIVE); COLOR,URINE YELLOW (YELLOW); LEUKOCYTE ESTERASE ,URINE TRACE (NEGATIVE); NITRITE, URINE POSITIVE (NEGATIVE); PH,URINE 6.5 (5.0-9.0); UGLUCOSE NEGATIVE (NEGATIVE)
--- NOTE | 2018-06-26 18:25 | NUR ---
pt resting with caregiver at bedside at this time
[2018-06-26 18:39] LABS: RBC,URINE 0-5 /HPF (0-5); URINE AMORPHOUS URATE 1+ /HPF (None Seen)
--- NOTE | 2018-06-26 19:12 | NUR ---
recieved report from baljit FLORES.
--- NOTE | 2018-06-26 19:32 | NUR ---
PT HAS YELLOW DRAINAGE COMING FROM AROUND BASE OF G-TUBE, WITH SLIGH ODOR PRESENT. VSS.
[2018-06-26] MEDS ORDERED: BACITRACIN OINT 500 UNITS/GM PKT TP ONE (20:05)
--- NOTE | 2018-06-26 20:16 | NUR ---
assisted x-ray at bedside, injected contrast into G-tube to check placement. Cleaned around G-tube with NS, applied bacitracin, covered with split gauze pad, and secured wtih tape. pt tolerated well.
[2018-06-26 20:34] VITALS: BP 135/76
--- NOTE | 2018-06-26 20:34 | NUR ---
Patient discharged with v/s stable. Written and verbal after care instructions given and explained. Patient verbalized understanding. Wheel Chair Assisted with by caregiver. All questions addressed prior to discharge. Advised to follow up with PMD.
== END 2018-06-26 20:34 | disposition home or self-care (01) ==
LOC: MED 16:27
DX: K94.23 Gastrostomy malfunction (principal); K21.9 Gastro-esophageal reflux disease without esophagitis; I10 Essential (primary) hypertension; N28.9 Disorder of kidney and ureter, unspecified; Z79.2 Long term (current) use of antibiotics; Z79.1 Long term (current) use of non-steroidal anti-inflammatories (NSAID); Z79.82 Long term (current) use of aspirin; Z79.899 Other long term (current) drug therapy
CPT/HCPCS: 36415; 43762; 71045; 74241; 80053; 81001; 82550; 83605; 83880; 84484; 85025; 85610; 85730; 87040; 87086; 87186; 93005; 99284; Q0092; 99281

== ENCOUNTER 2018-06-27 08:13 | Emergency (ER) | payer OTHER, MEDICAID ==
[~2018-06-27] VITALS: Ht 177.8 cm; Wt 72.6 kg
[2018-06-27 08:22] VITALS: BP 145/80
[2018-06-27 08:43] VITALS: BP 145/80
== END 2018-06-27 08:42 | disposition home or self-care (01) ==
LOC: MED 08:13
DX: K94.23 Gastrostomy malfunction (principal); K21.9 Gastro-esophageal reflux disease without esophagitis; I10 Essential (primary) hypertension; N28.9 Disorder of kidney and ureter, unspecified; Z79.82 Long term (current) use of aspirin; Z79.1 Long term (current) use of non-steroidal anti-inflammatories (NSAID); Z79.2 Long term (current) use of antibiotics; Z79.899 Other long term (current) drug therapy
CPT/HCPCS: 99281

== ENCOUNTER 2018-08-11 10:08 | Inpatient (IN) | payer OTHER, MEDICAID ==
[~2018-08-11] VITALS: Ht 177.8 cm; Wt 80.7 kg
--- NOTE | 2018-08-11 10:22 | NUR ---
PT WHEELCHAIRED TO ER BED 5
[2018-08-11 10:26] VITALS: BP 172/85
--- NOTE | 2018-08-11 10:30 | NUR ---
SEIZURE PRECAUTIONS PLACED AT THIS TIME
--- NOTE | 2018-08-11 10:41 | NUR ---
PT BIB CAREGIVER VIA W/C C/O green VOMITING X 3-5 TIMES X 3-4 HOURS. -TRAUMA. denies pain. gcs 11. denies constipation or diarrhea. skin is warm and dry to touch. bed is down, bed rail x 2, ermd notified. caregiver at bedside. HX-MILD INTELLECTUAL DISABILITY,SZ,HTN,ANEMIA,SCLEROSIS,LT SEVERE HYDRONEPHROSIS, GERD,DEPRESSION,DUODENAL ULCER,CYCT H/O UTI, G-TUBE,CATARACTS, HEARING LOSS, HYPONATREMIA, caregiver has med list
--- NOTE | 2018-08-11 10:42 | NUR ---
pt is nonverbal, caregiver answering questions
[2018-08-11] MEDS ORDERED: NACL 0.9% 1,000 ML IV ONE (11:11)
[2018-08-11] MEDS ORDERED: METOCLOPRAMIDE 10 MG TAB PO ONE (11:15)
[2018-08-11] MEDS ORDERED: LACTULOSE 20 GM/30 ML UDC PO ONE (11:15)
--- NOTE | 2018-08-11 11:31 | NUR ---
LAB AT BEDSIDE
--- NOTE | 2018-08-11 11:34 | NUR ---
pt straight cath for urine collection
--- NOTE | 2018-08-11 11:44 | NUR ---
PT SENT TO CT WITH TECH VIA BED AND CAREGIVER
[2018-08-11 11:53] LABS: BASOPHILS # (AUTO) 0.1 K/uL (0.00-0.22); BASOPHILS % (AUTO) 0.6 % (0.0-2.0); EOSINOPHILS # (AUTO) 0.1 K/uL (0-0.4); HEMATOCRIT 41.1 % (36-52); HEMOGLOBIN 13.9 g/dL (12.0-18.0); LYMPHOCYTES # (AUTO) 1.2 K/uL (2.0-11.5); LYMPHOCYTES % (AUTO) 14.3 % (20.5-51.1); MEAN CORPUSCULAR HEMOGLOBIN 33 pg (27-31); MEAN CORPUSCULAR HGB CONC 34 g/dL (33-37); MONOCYTES # (AUTO) 0.7 K/uL (0.8-1.0); MONOCYTES % (AUTO) 8.2 % (1.7-9.3); NEUTROPHILS # (AUTO) 6.1 K/uL (1.8-7.7); NEUTROPHILS % (AUTO) 75.9 % (42.2-75.2); PLATELET COUNT (AUTO) 227 K/uL (140-450); RED BLOOD CELL COUNT(AUTO) 4.28 MIL/uL (4.20-6.10); RED CELL DISTRIBUTION WIDTH 12.6 % (11.6-13.7); WHITE BLOOD COUNT (AUTO) 8.1 K/uL (4.8-10.8)
[2018-08-11 11:56] LABS: APPEARANCE,URINE SL CLOUDY (CLEAR); BILIRUBIN,URINE NEGATIVE (NEGATIVE); BLOOD, URINE NEGATIVE (NEGATIVE); COLOR,URINE YELLOW (YELLOW); LEUKOCYTE ESTERASE ,URINE NEGATIVE (NEGATIVE); NITRITE, URINE NEGATIVE (NEGATIVE); PH,URINE 6.5 (5.0-9.0); UGLUCOSE NEGATIVE (NEGATIVE)
[2018-08-11 12:03] LABS: ANION GAP 14.2 (8-16); CARBON DIOXIDE 26.3 mmol/L (21-32); CHLORIDE 103 mmol/L (98-107); GLUCOSE 134 mg/dL (74-106); POTASSIUM 3.5 mmol/L (3.5-5.1); SODIUM SERUM 140 mmol/L (136-145); UREA NITROGEN, BLOOD 17 mg/dL (7-18)
--- NOTE | 2018-08-11 12:05 | NUR ---
PT BACK FROM CT VIA BED WITH CAREGIVER
[2018-08-11 12:08] LABS: ALBUMIN 3.5 g/dL (3.4-5.0); AMYLASE 154 U/L (25-115); ASPARTATE AMINOTRANSFERASE 26 U/L (15-37); LIPASE 292 U/L (73-393); TOTAL BILIRUBIN 0.3 mg/dL (0.0-1.0)
[2018-08-11 12:20] LABS: RBC,URINE 0-5 /HPF (0-5)
--- NOTE | 2018-08-11 12:45 | NUR ---
vss at this time. caregiver at bedside
--- NOTE | 2018-08-11 13:01 | NUR ---
IV 24 GA RT HAND 2 FINGER. PT GABBY WELL
--- NOTE | 2018-08-11 13:07 | NUR ---
fluid started at 60 mls/hr
[2018-08-11] MEDS ORDERED: HYDROcodone/APAP 7.5/325 MG 1 TAB PO PRN (13:30)
[2018-08-11] MEDS: DEXT 5% / NACL 0.9% 500 ML IV SCH ×2 (13:30→20:39)
--- NOTE | 2018-08-11 13:45 | NUR ---
Patient will be admitted to care of BLAIR. Admited to Med/Surg. Will go to [id number]. Belongings list completed. Report to GUZMAN.
[2018-08-11] MEDS ORDERED: BISACODYL 10 MG SUPP RC SCH (14:00)
[2018-08-11 14:20] VITALS: BP 154/86
--- NOTE | 2018-08-11 14:20 | NUR ---
report given to miguelangel irby
--- NOTE | 2018-08-11 14:20 | NUR ---
pt taken to floor
--- NOTE | 2018-08-11 14:40 | NUR ---
GOT BEDSIDE REPORT FROM JANEE, ER NURSE. PATIENT NONVERBAL AT THIS TIME, ON MED SURGE AND STANDARD PRECAUTIONS IN PLACE. SKIN INTACT AND PATIENT UNABLE TO AMBULATE, WHEELCHAIR AT BEDSIDE. PATIENT INCONTINENT. G TUBE IN PLACE, SWOOSH HEARD AND 5 ML OF GASTRIC RESIDUAL. IV ON R HAND 24 G INFUSING D5 NS AT 75, IV ASYMPTOMATIC PATENT AND INTACT. FALL RISK PROTOCOL IN PLACE. BED IN LOW POSITION, CALL LIGHT WITHIN REACH, SIDE RAILS X2 UP.
[2018-08-11 14:51] LABS: FREE T4 (FREE THYROXINE) 0.98 ng/dL (0.76-1.46); MAGNESIUM 2.3 mg/dL (1.8-2.4); PHOSPHORUS 3.3 mg/dL (2.5-4.9); THYROID STIMULATING HORMONE 1.72 uIU/mL (0.34-3.74)
[2018-08-11] MEDS ORDERED: ZONI50CA2 GT (15:28)
[2018-08-11] MEDS ORDERED: LACO50TA GT (15:28)
[2018-08-11] MEDS ORDERED: LACT10SO11 GT (15:28)
[2018-08-11] MEDS ORDERED: SIMV20TA1 PO (15:28)
[2018-08-11] MEDS ORDERED: BISACODYL 10 MG SUPP RC PRN (15:30)
[2018-08-11] MEDS ORDERED: PROMETHAZINE 6.25 MG/5 ML ORASYR GT PRN (15:30)
[2018-08-11] MEDS ORDERED: MULT9LIQ2 PO (15:43)
[2018-08-11] MEDS ORDERED: COL100L GT (15:43)
[2018-08-11] MEDS ORDERED: PHENERGAN DM GT (15:43)
[2018-08-11 16:00] VITALS: BP 149/83
--- NOTE | 2018-08-11 16:06 | NUR ---
ADMINISTERED SCHEDULED MEDS. PATIENT TOLERATED WELL
[2018-08-11] MEDS ORDERED: amLODIPine 5 MG TAB GT SCH (16:30)
[2018-08-11] MEDS ORDERED: ONDANSETRON 4 MG TAB PO PRN (17:45)
--- NOTE | 2018-08-11 18:40 | NUR ---
NG TUBE INSERTED
--- NOTE | 2018-08-11 19:25 | NUR ---
GAVE BEDSIDE REPORT TO MARK BAUTISTA. PATIENT ENDORSED IN STABLE CONDITION
--- NOTE | 2018-08-11 19:26 | NUR ---
RECEIVED REPORT FROM DAY SHIFT NURSE TYE-MARK AT BEDSIDE. PT RESTING IN BED, AOX1-CONFUSED AND APHASIC, ON ROOM AIR WITH LEFT HAND #24G RUNNING D5/NS @70ML/HR. RIGHT HAND IV SITE INFILTRATED, EDEMATOUS +4- CHARGE NURSE MECCA-RN AWARE. NEW IV SITE PLACED BY RYDER. NG-TUBE IN PLACE AWAITING X-RAY PLACEMENT BEFORE BEING PLACED ON LOW INTERMITTENT SUCTIONING; G-TUBE IN PLACE- NPO EXCEPT MEDS WITH ZERO RESIDUAL. PT IS WHEELCHAIR BOUND, INCONTINENT. DISCUSSED PLAN OF CARE AND PT NODDED HEAD. NO S/S OF RESPIRATORY DISTRESS OR DISCOMFORT NOTED AT THIS TIME. BED IN LOWEST POSITION, BED BREAKS ON, BOTH SIDE RAILS UP AND FALL PRECAUTIONS IN PLACE. BEDSIDE TABLE AND CALL LIGHT ARE WITHIN REACH. WILL CONTINUE TO MONITOR.
[2018-08-11 20:00] VITALS: BP 152/81
--- NOTE | 2018-08-11 20:00 | NUR ---
VITAL SIGNS TAKEN AND TOLERATED WELL. NO S/S OF RESPIRATORY DISTRESS OR DISCOMFORT NOTED AT THIS TIME. WILL CONTINUE TO MONITOR.
[2018-08-11] MEDS: ASCORBIC ACID 500 MG/5 ML ORASYR GT SCH (20:43)
[2018-08-11] MEDS: DOCUSATE 100 MG/10 ML UDC GT SCH (20:43)
[2018-08-11] MEDS: lamoTRIgine 25 MG TAB GT SCH (20:44)
[2018-08-11] MEDS: FAMOTIDINE 20 MG TAB GT SCH (20:44)
[2018-08-11] MEDS: levETIRAcetam 100 MG/ML ORASYR GT SCH (20:44)
--- NOTE | 2018-08-11 20:46 | NUR ---
SCHEDULED MEDICATIONS GIVEN AND TOLERATED WELL. NO S/S OF RESPIRATORY DISTRESS OR DISCOMFORT NOTED AT THIS TIME. WILL CONTINUE TO MONITOR.
[2018-08-11] MEDS ORDERED: CRANBERRY FRUIT 500 MG GT SCH (21:00)
[2018-08-11] MEDS ORDERED: LACOSAMIDE GT SCH (21:00)
[2018-08-11] MEDS ORDERED: ZONISAMIDE GT SCH (21:00)
--- NOTE | 2018-08-11 22:00 | NUR ---
PT RESTING IN BED. NO S/S OF RESPIRATORY DISTRESS OR DISCOMFORT NOTED AT THIS TIME. WILL CONTINUE TO MONITOR.
[2018-08-12] VITALS: BP 145/73
--- NOTE | 2018-08-12 | NUR ---
VITAL SIGNS TAKEN AND TOLERATED WELL. NO S/S OF RESPIRATORY DISTRESS OR DISCOMFORT NOTED AT THIS TIME. WILL CONTINUE TO MONITOR.
--- NOTE | 2018-08-12 00:46 | NUR ---
PT PULLED OUT NG-TUBE AND CONTINUES TO ATTEMPT TO PULL OUT TUBE AGAIN WHEN TRYING TO REINSERT. SPOKE WITH DR. SOPHIA GRANT FOR SOFT WRIST RESTRAINTS. PT TOLERATED WELL. NO S/S OF RESPIRATORY DISTRESS OR DISCOMFORT NOTED AT THIS TIME. WILL CONTINUE TO MONITOR.
[2018-08-12] MEDS ORDERED: LORazepam 2 MG/ML VIAL IVP PRN (00:50)
--- NOTE | 2018-08-12 00:57 | NUR ---
ATIVAN GIVEN FOR AGITATION AFTER PT PULLED OUT NG TUBE AND RESISTING REINSERTION. NEW ORDER FROM DR. SOPHIA GRANT. CHARGE NURSE RYDER-MARK PRESENT AND AWARE. WILL RE-ATTEMPT NG TUBE INSERTION. NO S/S OF RESPIRATORY DISTRESS OR DISCOMFORT NOTED AT THIS TIME. WILL CONTINUE TO MONITOR.
[2018-08-12] MEDS ORDERED: LORazepam 2 MG/ML VIAL ONE (01:05)
--- NOTE | 2018-08-12 01:21 | NUR ---
NG-TUBE REINSERTED BY CHARGE NURSE DAMIR. CXR ORDERED FOR PLACEMENT. PT TOLERATED WELL. NO S/S OF RESPIRATORY DISTRESS OR DISCOMFORT NOTED AT THIS TIME. WILL CONTINUE TO MONITOR.
--- NOTE | 2018-08-12 02:00 | NUR ---
PT SLEEPING IN BED. NO S/S OF RESPIRATORY DISTRESS OR DISCOMFORT NOTED AT THIS TIME. WILL CONTINUE TO MONITOR.
[2018-08-12] MEDS: DEXT 5% / NACL 0.9% 500 ML IV SCH (03:48)
--- NOTE | 2018-08-12 04:00 | NUR ---
PT CONTINUES TO SLEEP IN BED. NO S/S OF RESPIRATORY DISTRESS OR DISCOMFORT NOTED AT THIS TIME. WILL CONTINUE TO MONITOR.
--- NOTE | 2018-08-12 06:00 | NUR ---
PT CONTINUES TO SLEEP IN BED. NO S/S OF RESPIRATORY DISTRESS OR DISCOMFORT NOTED AT THIS TIME. WILL CONTINUE TO MONITOR.
--- NOTE | 2018-08-12 07:05 | NUR ---
ENDORSED PT CARE TO DAY SHIFT NURSE CRISTY FOR CONTINUITY OF CARE.
--- NOTE | 2018-08-12 07:18 | NUR ---
RECEIVED REPORT FROM AUTO BODY ESTIMATOR NURSE. PT RESTING IN BED, AOX1-CONFUSED AND APHASIC, ON ROOM AIR WITH LEFT HAND #24G RUNNING D5/NS @70ML/HR. NG-TUBE IN PLACE AWAITING X-RAY FOR IMAGING; G-TUBE IN PLACE- NPO EXCEPT MEDS WITH ZERO RESIDUAL. PT IS WHEELCHAIR BOUND, INCONTINENT. DISCUSSED PLAN OF CARE AND PT NODDED HEAD. NO S/S OF RESPIRATORY DISTRESS OR DISCOMFORT NOTED AT THIS TIME. BED IN LOWEST POSITION, BED BREAKS ON, BOTH SIDE RAILS UP AND FALL PRECAUTIONS IN PLACE. BEDSIDE TABLE AND CALL LIGHT ARE WITHIN REACH. WILL CONTINUE TO MONITOR.
[2018-08-12 08:00] VITALS: BP 167/90
[2018-08-12 08:11] LABS: BASOPHILS % (AUTO) 0.4 % (0.0-2.0); EOSINOPHILS # (AUTO) 0.1 K/uL (0-0.4); EOSINOPHILS % (AUTO) 0.9 % (0.0-4.0); HEMATOCRIT 40.3 % (36-52); HEMOGLOBIN 13.7 g/dL (12.0-18.0); LYMPHOCYTES # (AUTO) 1.7 K/uL (2.0-11.5); LYMPHOCYTES % (AUTO) 20.2 % (20.5-51.1); MEAN CORPUSCULAR HEMOGLOBIN 33 pg (27-31); MEAN CORPUSCULAR HGB CONC 34 g/dL (33-37); MONOCYTES # (AUTO) 1.2 K/uL (0.8-1.0); MONOCYTES % (AUTO) 13.9 % (1.7-9.3); NEUTROPHILS # (AUTO) 5.4 K/uL (1.8-7.7); NEUTROPHILS % (AUTO) 64.6 % (42.2-75.2); PLATELET COUNT (AUTO) 238 K/uL (140-450); RED CELL DISTRIBUTION WIDTH 12.6 % (11.6-13.7); WHITE BLOOD COUNT (AUTO) 8.3 K/uL (4.8-10.8)
[2018-08-12 08:12] LABS: ANION GAP 14.2 (8-16); CARBON DIOXIDE 25.6 mmol/L (21-32); CHLORIDE 106 mmol/L (98-107); CREATININE 1.1 mg/dL (0.7-1.3); GLUCOSE 116 mg/dL (74-106); SODIUM SERUM 143 mmol/L (136-145); UREA NITROGEN, BLOOD 14 mg/dL (7-18)
--- NOTE | 2018-08-12 08:15 | NUR ---
PATIENT HAS BEEN SCREENED AND CATEGORIZED HIGH NUTRITION RISK. PATIENT WILL BE SEEN WITHIN 1-2 DAYS OF ADMISSION. 08/12/18-08/13/[address]
[2018-08-12 08:24] LABS: POTASSIUM 2.8 mmol/L (3.5-5.1)
[2018-08-12 08:38] LABS: MAGNESIUM 2.3 mg/dL (1.8-2.4); PHOSPHORUS 2.7 mg/dL (2.5-4.9)
[2018-08-12] MEDS ORDERED: PANTOPRAZOLE 40 MG INJ VIAL IVP SCH (09:00)
[2018-08-12] MEDS ORDERED: amLODIPine 5 MG TAB GT SCH ×2 (09:00)
[2018-08-12] MEDS ORDERED: POTASSIUM CHLORIDE 20% 40 MEQ/15 ML UDC NG SCH (09:00)
[2018-08-12] MEDS ORDERED: FERROUS SULFATE 300 MG/5 ML UDC NG SCH (09:00)
[2018-08-12] MEDS ORDERED: POTASSIUM CHLORIDE 40 MEQ, LIDOCAINE 1% 25 MG in NACL 0.9% 250 ML IV SCH (09:30)
--- NOTE | 2018-08-12 10:36 | NUR ---
ADMINISTERED MORNING MEDS TO PT. PT TOLERATED THEM WELL. G-TUBE FLUSHING WELL. NO SIGNS OF DISTRESS AT THIS TIME. FLACC-0. WILL CONTINUE TO ROUND FREQUENTLY ON PT. BED IN LOW POSITION, CALL LIGHT WITHIN REACH.
[2018-08-12] MEDS: DEXT 5% /NACL 0.9% 1,000 ML IV SCH ×2 (10:39→19:48)
[2018-08-12] MEDS: FAMOTIDINE 20 MG TAB GT SCH ×2 (10:41→20:19)
[2018-08-12] MEDS: SIMVASTATIN 20 MG TAB PO SCH (10:41)
[2018-08-12] MEDS: FOLIC ACID 1 MG TAB GT SCH (10:44)
[2018-08-12] MEDS: MULTIVITAMIN 1 TAB PO SCH (10:44)
[2018-08-12] MEDS: ASPIRIN 81 MG TAB.CHEW PO SCH (10:44)
[2018-08-12] MEDS: CHOLECALCIFEROL 1,000 IU TAB GT SCH (10:44)
[2018-08-12] MEDS: DOCUSATE 100 MG/10 ML UDC GT SCH ×2 (10:45→20:18)
[2018-08-12] MEDS: lamoTRIgine 25 MG TAB GT SCH ×2 (10:45→20:19)
[2018-08-12] MEDS: levETIRAcetam 100 MG/ML ORASYR GT SCH ×2 (10:45→20:17)
[2018-08-12] MEDS: ASCORBIC ACID 500 MG/5 ML ORASYR GT SCH ×2 (10:45→20:24)
[2018-08-12] MEDS: LACTOBACILLUS RHAMNOSUS GG 1 EACH CAP PO SCH (10:45)
--- NOTE | 2018-08-12 12:24 | NUR ---
PT SLEEPING IN BED. NO SUCTIONING ON AT THIS TIME DUE TO X-RAY TESTING WITH CONTRAST DYE. PT TOLERATING CONTRAST WELL. NO SIGNS OF DISTRESS OR PAIN. FLACC-0. WILL CONTINUE TO MONITOR PT FREQUENTLY. BED IN LOW POSITION, CALL LIGHT WITHIN REACH.
[2018-08-12] MEDS ORDERED: BISACODYL 5 MG TABEC PO SCH (14:30)
--- NOTE | 2018-08-12 14:35 | NUR ---
08/12/18 RD INITIAL ASSESSMENT COMPLETED PLEASE REFER TO NUTRITION ASSESSMENT UNDER CARE ACTIVITY FOR ESTIMATED NUTRITIONAL NEEDS. 1. CONTINUE NPO MEDICALLY NECESSARY 2. WHEN PT IS MEDICALLY STABLE TO RECEIVE NUTRITION, RECOMMEND JEVITY AT 65 ML/HR -THIS WILL PROVIDE A VOLUME OF 1560 ML, 1872 KCAL, AND 86.6 GM OF PROTEIN. IT MEETS 100% OF PT�S ENERGY AND PROTEIN NEEDS. 3. RECOMMEND FWF 140 Q4H OR PER MD 4. RD TO FOLLOW-UP 2-3 DAYS, HIGH RISK LITZY [address]
[2018-08-12] MEDS ORDERED: SODIUM PHOSPHATE 118 ML ENEM RC SCH (15:00)
[2018-08-12 16:00] VITALS: BP 163/88
--- NOTE | 2018-08-12 19:43 | NUR ---
ENDORSED PT TO OXYGEN TANK FILLER FOR CONTINUITY OF CARE. PT IN STABLE CONDITION.
--- NOTE | 2018-08-12 19:45 | NUR ---
RECEIVED PT FROM CRICKET FLORES PT AAOX1 REMAIN CALM IV ON LEFT HAND INFUSING WELL, G TUBE IN PLACE PATENT ZERO RESIDUAL, INCONTINENNT REPOSITIONED STRIPPING CUTTER AND WINDER AT BED SIDE
[2018-08-12 20:00] VITALS: BP 153/83
--- NOTE | 2018-08-12 22:00 | NUR ---
PT OPEN EYES NOT DISTRESS NOTED REPOSITIONED Q2H REMAIN STABLE NOT SIGH OF PAIN OR DISCOMFORT.
[2018-08-13] VITALS: BP 157/79
--- NOTE | 2018-08-13 01:00 | NUR ---
PT SLEEPING WELL, REPOSITIONED REMAIN STABLE
--- NOTE | 2018-08-13 04:30 | NUR ---
SPONGE BATH GIVEN LINEN CHANGED, PT COOPERATIVE, NOT DISTRESS NOTED
[2018-08-13] MEDS: DEXT 5% /NACL 0.9% 1,000 ML IV SCH (04:59)
--- NOTE | 2018-08-13 06:45 | NUR ---
A NEW ORDER TO FOLLOW TO START G TUBE FEEDING JEVITY 1.2 AT 10 ML/H TO FOLLOW ORDER AND SULPERVISOR WAS CALL TO BRING FEEDING PUMP, PT WILL BE ENDORSED TO DAY SHIFT NURSE FOR CONTINUE OFCARE
--- NOTE | 2018-08-13 07:05 | NUR ---
GOT BEDSIDE REPORT FROM MARK TAFOYA. PATIENT AAOX1 AND ON ROOM AIR, NO DISTRESS NOTED. SKIN INTACT. IV ON L H 24 G INFUSING D5NS AT 100, IV ASYMPTOMATIC PATENT AND INTACT. W G TUBE IN PLACE. 5 ML GASTRIC RESIDUAL AND SWOOSH HEARD. PATIENT UNABLE TO AMBULATE AND INCONTINENT. FALL RISK PROTOCOL IN PLACE. PATIENT ON MED SURGE AND STANDARD PRECAUTIONS IN PLACE. BED IN LOW POSITION, CALL LIGHT WITHIN REACH, SIDE RAILS X2 UP
[2018-08-13 08:00] VITALS: BP 169/69
[2018-08-13] MEDS: ASCORBIC ACID 500 MG/5 ML ORASYR GT SCH ×2 (08:22→21:32)
[2018-08-13] MEDS: levETIRAcetam 100 MG/ML ORASYR GT SCH ×2 (08:22→20:24)
[2018-08-13] MEDS: DOCUSATE 100 MG/10 ML UDC GT SCH ×2 (08:22→20:23)
[2018-08-13] MEDS: CHOLECALCIFEROL 1,000 IU TAB GT SCH (08:22)
[2018-08-13] MEDS: POTASSIUM CHLORIDE 20% 40 MEQ/15 ML UDC GT SCH (08:22)
[2018-08-13] MEDS: FERROUS SULFATE 300 MG/5 ML UDC GT SCH (08:22)
[2018-08-13] MEDS: ASPIRIN 81 MG TAB.CHEW PO SCH (08:23)
[2018-08-13] MEDS: LACTOBACILLUS RHAMNOSUS GG 1 EACH CAP PO SCH (08:23)
[2018-08-13] MEDS: amLODIPine 5 MG TAB GT SCH (08:23)
[2018-08-13] MEDS: FOLIC ACID 1 MG TAB GT SCH (08:24)
[2018-08-13] MEDS: MULTIVITAMIN 1 TAB PO SCH (08:24)
[2018-08-13] MEDS: SIMVASTATIN 20 MG TAB PO SCH (08:24)
[2018-08-13] MEDS: FAMOTIDINE 20 MG TAB GT SCH ×2 (08:24→20:24)
[2018-08-13] MEDS: lamoTRIgine 25 MG TAB GT SCH (08:24)
--- NOTE | 2018-08-13 08:30 | NUR ---
ADMINISTERED SCHEDULED MEDS. PATIENT TOLERATED WELL. G TUBE DRESSING CLEAN DRY AND INTACT. 5 ML GASTRIC RESIDUAL AND SWOOSH HEARD WHEN AUSCULTATED. FLUSHED WITH WATER BEFORE AND AFTER MED ADMINISTRATION
[2018-08-13 08:33] LABS: ANION GAP 10.3 (8-16); CHLORIDE 108 mmol/L (98-107); GLUCOSE 119 mg/dL (74-106); POTASSIUM 3.3 mmol/L (3.5-5.1); SODIUM SERUM 143 mmol/L (136-145); UREA NITROGEN, BLOOD 11 mg/dL (7-18)
[2018-08-13 08:47] LABS: MAGNESIUM 2.1 mg/dL (1.8-2.4); PHOSPHORUS 3.2 mg/dL (2.5-4.9)
--- NOTE | 2018-08-13 08:53 | NUR ---
TUBE FEEDING STARTED: JEVITY 1.2 10 ML/HR AND WILL INCREASE BY 10 EVERY 4 H FOR GOAL OF 65/HR AND WATER FLUSH OF 140 Q4H. WILL CONTINUE TO MONITOR PATIENT
[2018-08-13] MEDS: NACL 0.9% 500 ML IV SCH (09:29)
[2018-08-13] MEDS ORDERED: LACTULOSE 20 GM/30 ML UDC GT SCH (09:30)
[2018-08-13] MEDS ORDERED: POLYETHYLENE GLYCOL 17 GM/PKT GT SCH (09:30)
[2018-08-13] MEDS ORDERED: POTASSIUM CHLORIDE 20% 40 MEQ/15 ML UDC GT SCH (09:30)
[2018-08-13 09:39] LABS: BASOPHILS % (AUTO) 0.9 % (0.0-2.0); EOSINOPHILS # (AUTO) 0.2 K/uL (0-0.4); EOSINOPHILS % (AUTO) 3.8 % (0.0-4.0); LYMPHOCYTES # (AUTO) 1.8 K/uL (2.0-11.5); LYMPHOCYTES % (AUTO) 34.9 % (20.5-51.1); MEAN CORPUSCULAR HEMOGLOBIN 33 pg (27-31); MEAN CORPUSCULAR HGB CONC 34 g/dL (33-37); MEAN CORPUSCULAR VOLUME 95.6 fL (80-94); MONOCYTES # (AUTO) 0.8 K/uL (0.8-1.0); MONOCYTES % (AUTO) 14.8 % (1.7-9.3); NEUTROPHILS # (AUTO) 2.3 K/uL (1.8-7.7); NEUTROPHILS % (AUTO) 45.6 % (42.2-75.2); PLATELET COUNT (AUTO) 226 K/uL (140-450); RED BLOOD CELL COUNT(AUTO) 3.98 MIL/uL (4.20-6.10); RED CELL DISTRIBUTION WIDTH 12.8 % (11.6-13.7); WHITE BLOOD COUNT (AUTO) 5.1 K/uL (4.8-10.8)
[2018-08-13] MEDS ORDERED: HYDROCHLOROTHIAZIDE 25 MG TAB GT SCH (10:00)
--- NOTE | 2018-08-13 11:16 | NUR ---
SOILED PADS CLEANED WITH FILTER WORKER
--- NOTE | 2018-08-13 13:00 | NUR ---
SOILED LINENS CHANGED WITH ASSET PROTECTION OFFICER AND PILLOWS PLACED ON EITHER SIDE, ON ROOM AIR, NO DISTRESS NOTED
--- NOTE | 2018-08-13 15:19 | NUR ---
PATIENT TURNED TO L SIDE LYING POSITION AND CLEANED SOILED SHEETS
[2018-08-13 16:00] VITALS: BP 109/82
--- NOTE | 2018-08-13 17:10 | NUR ---
PATIENT HAD BM, CLEANED SOILED SHEETS WITH SHIPPING CLERK
--- NOTE | 2018-08-13 19:13 | NUR ---
GAVE BEDSIDE REPORT TO MARK GRIMM. PATIENT ENDORSED IN STABLE CONDITION, ON ROOM AIR NO DISTRESS NOTED, IV ASYMPTOMATIC PATENT AND INTACT
--- NOTE | 2018-08-13 19:14 | NUR ---
RECEIVED BEDSIDE REPORT PT AM SHIFT. AAOX1, PT APHASIC, NON-AMBULATORY, PT ON BED. W/ IV LEFT HAND INFUSING WELL G 24, G TUBE IN PLACE WITH 5 ML RESIDUAL, INCONTINENT. CALL LIGHT PLACED WITHIN EASY REACH, BED ALARM ON, SEIZURE PREC. PLACED ON LOW BED.
--- NOTE | 2018-08-13 19:30 | NUR ---
INFORMED DR. GRANT BP IS HIGH 180/83, HR 68. 2 TAKES ON THE RIGHT UPPER ARM. AWAITING DR'S ORDER
[2018-08-13] MEDS ORDERED: hydrALAZINE 20 MG/ML VIAL IVP PRN (19:35)
[2018-08-13 20:00] VITALS: BP 181/83
[2018-08-13] MEDS: LACTULOSE 20 GM/30 ML UDC GT SCH (20:23)
--- NOTE | 2018-08-13 20:53 | NUR ---
GIVEN HYDRALAZINE ORDERED.WILL REASSESS
--- NOTE | 2018-08-13 21:50 | NUR ---
REASSESSED 136/85, 76 BPM
[2018-08-14] VITALS: BP 108/56
--- NOTE | 2018-08-14 02:46 | NUR ---
PT TURNED Q2, PT WENT BACK TO SLEEP, NO DISTRESS AT THIS TIME
[2018-08-14 04:00] VITALS: BP 155/76
--- NOTE | 2018-08-14 04:00 | NUR ---
VITALS TAKEN WITHIN NORMAL LIMITS, WILL CONTINUE TO MONITOR BO FOR HIGH BP. PT SLEEPING, TURNED PT TO HIS SIDE.
[2018-08-14 06:33] LABS: CARBON DIOXIDE 27.6 mmol/L (21-32); CHLORIDE 104 mmol/L (98-107); GLUCOSE 119 mg/dL (74-106); SODIUM SERUM 140 mmol/L (136-145); UREA NITROGEN, BLOOD 9 mg/dL (7-18)
[2018-08-14 06:34] LABS: BASOPHILS % (AUTO) 0.6 % (0.0-2.0); EOSINOPHILS # (AUTO) 0.3 K/uL (0-0.4); EOSINOPHILS % (AUTO) 3.9 % (0.0-4.0); HEMATOCRIT 40.7 % (36-52); HEMOGLOBIN 13.9 g/dL (12.0-18.0); LYMPHOCYTES # (AUTO) 1.8 K/uL (2.0-11.5); MEAN CORPUSCULAR HEMOGLOBIN 33 pg (27-31); MEAN CORPUSCULAR HGB CONC 34 g/dL (33-37); MEAN CORPUSCULAR VOLUME 95.5 fL (80-94); MONOCYTES # (AUTO) 0.8 K/uL (0.8-1.0); MONOCYTES % (AUTO) 12.5 % (1.7-9.3); NEUTROPHILS # (AUTO) 3.7 K/uL (1.8-7.7); PLATELET COUNT (AUTO) 228 K/uL (140-450); RED BLOOD CELL COUNT(AUTO) 4.26 MIL/uL (4.20-6.10); RED CELL DISTRIBUTION WIDTH 12.6 % (11.6-13.7); WHITE BLOOD COUNT (AUTO) 6.7 K/uL (4.8-10.8)
[2018-08-14] MEDS ORDERED: ORE25 GT (06:39)
[2018-08-14] MEDS ORDERED: AMLO5TAB6 GT (06:39)
[2018-08-14] MEDS ORDERED: BISA10SU27 RC (06:39)
[2018-08-14] MEDS ORDERED: FLEPED RC (06:41)
[2018-08-14 06:43] LABS: MAGNESIUM 2.1 mg/dL (1.8-2.4); PHOSPHORUS 3.5 mg/dL (2.5-4.9)
[2018-08-14] MEDS ORDERED: SULF-59 PO (06:44)
[2018-08-14 06:48] LABS: POTASSIUM 2.6 mmol/L (3.5-5.1)
[2018-08-14] MEDS ORDERED: KCL 20 MEQ/WATER INJ PREMIX 200 ML IV ONE (06:50)
--- NOTE | 2018-08-14 06:50 | NUR ---
CRITICAL LAB RESULT POTASSIUM 2.6 , INFORMED DR. GRANT
--- NOTE | 2018-08-14 07:15 | NUR ---
PT AWAKE, APHASIC, IN BED, NO DISTRESS AT THIS TIME ENDORSED TO NEXT SHIFT FOR CONTINUITY OF CARE.
--- NOTE | 2018-08-14 07:18 | NUR ---
RECEIVED BEDSIDE REPORT FROM PRECISION LENS GENERATOR RN. PT IN STABLE CONDITION. APHASIC. ABLE TO FOLLOW SIMPLE COMMANDS. FLACC 0. G-TUBE FEEDING IN PLACE AT 50ML/HR. NONAMBULATORY AND INCONTINENT PER PRECISION LENS GENERATOR RN. SKIN INTACT. IV SITE PATENT AND ASYMPTOMATIC, INFUSING IVF PER MD ORDERS. ALL SAFETY PRECAUTIONS IN PLACE, WILL CONTINUE TO MONITOR. Addendum: 08/14/18 at 1004 by Zonia Ashraf Meng, RN IVF AT [facility]
[2018-08-14 08:00] VITALS: BP 149/53
[2018-08-14] MEDS ORDERED: POTASSIUM CHLORIDE 20% 40 MEQ/15 ML UDC GT SCH ×2 (08:00→11:00)
[2018-08-14] MEDS ORDERED: POTASSIUM CHLORIDE 40 MEQ, LIDOCAINE 1% 25 MG in NACL 0.9% 250 ML IV SCH (08:30)
[2018-08-14] MEDS: POTASSIUM CHLORIDE 20% 40 MEQ/15 ML UDC GT SCH (08:32)
[2018-08-14] MEDS: LACTULOSE 20 GM/30 ML UDC GT SCH ×2 (08:32→21:18)
[2018-08-14] MEDS: levETIRAcetam 100 MG/ML ORASYR GT SCH ×2 (08:33→21:18)
[2018-08-14] MEDS: DOCUSATE 100 MG/10 ML UDC GT SCH ×2 (08:33→21:18)
[2018-08-14] MEDS: POLYETHYLENE GLYCOL 17 GM/PKT GT SCH (08:33)
[2018-08-14] MEDS: FERROUS SULFATE 300 MG/5 ML UDC GT SCH (08:33)
[2018-08-14] MEDS: ASCORBIC ACID 500 MG/5 ML ORASYR GT SCH ×2 (08:33→21:19)
[2018-08-14] MEDS: HYDROCHLOROTHIAZIDE 25 MG TAB GT SCH (08:34)
[2018-08-14] MEDS: SIMVASTATIN 20 MG TAB PO SCH (08:34)
[2018-08-14] MEDS: FOLIC ACID 1 MG TAB GT SCH (08:34)
[2018-08-14] MEDS: MULTIVITAMIN 1 TAB PO SCH (08:34)
[2018-08-14] MEDS: CHOLECALCIFEROL 1,000 IU TAB GT SCH (08:35)
[2018-08-14] MEDS: amLODIPine 5 MG TAB GT SCH (08:35)
[2018-08-14] MEDS: FAMOTIDINE 20 MG TAB GT SCH ×2 (08:35→21:18)
[2018-08-14] MEDS: ASPIRIN 81 MG TAB.CHEW PO SCH (08:35)
[2018-08-14] MEDS: LACTOBACILLUS RHAMNOSUS GG 1 EACH CAP PO SCH (08:35)
--- NOTE | 2018-08-14 08:54 | NUR ---
ADMINISTERED SCHEDULED MEDICATIONS. GASTRIC RESIDUAL <10 ML. ADVANCED TUBE FEEDING TO 60ML/HR.
[2018-08-14] MEDS: NACL 0.9% 500 ML IV SCH (09:05)
--- NOTE | 2018-08-14 11:18 | NUR ---
PT RESTING CALMLY IN BED, EYES OPENING SPONTANEOUSLY. SCHEDULED MEDICATION ADMINISTERED.
--- NOTE | 2018-08-14 12:53 | NUR ---
08/14/18 RD FOLLOW UP COMPLETED PLEASE REFER TO NUTRITION ASSESSMENT UNDER CARE ACTIVITY FOR ESTIMATED NUTRITIONAL NEEDS. 1. CONTINUE JEVITY AT 65 ML/HR -THIS WILL PROVIDE A VOLUME OF 1560 ML, 1872 KCAL, AND 86.6 GM OF PROTEIN. IT MEETS 100% OF PT�S ENERGY AND PROTEIN NEEDS. 2. CONTINUE FWF [address] TO FOLLOW-UP 2-3 DAYS, HIGH RISK LITZY [address]
[2018-08-14 15:49] LABS: ANION GAP 14.8 (8-16); CARBON DIOXIDE 23.3 mmol/L (21-32); CHLORIDE 107 mmol/L (98-107); GLUCOSE 106 mg/dL (74-106); POTASSIUM 4.1 mmol/L (3.5-5.1); SODIUM SERUM 141 mmol/L (136-145); UREA NITROGEN, BLOOD 9 mg/dL (7-18)
[2018-08-14 16:00] VITALS: BP 157/86
--- NOTE | 2018-08-14 16:22 | NUR ---
NOTIFIED CARLIE [phone] THAT PT WILL BE D/C TODAY. CALLED JEFFERSON [facility]. SHE SAID CALL HER BACK WHEN D/C PAPERWORK COMPLETE.
--- NOTE | 2018-08-14 17:45 | NUR ---
PATIENT VOMITED ONCE. RN FROM [facility] STATES SHE CAN'T TAKE PATIENT LIKE THIS. NOTIFIED DR. GRANT. Addendum: 08/14/18 at 1747 by Zonia Ashraf Meng, RN IV HAD ALREADY BEEN REMOVED.
--- NOTE | 2018-08-14 18:42 | NUR ---
PER DR. GRANT, START TUBE FEEDING AT 10 ML/HR WITH 140 ML FWF Q4H.
--- NOTE | 2018-08-14 19:20 | NUR ---
RECEIVED REPORT FROM DAY SHIFT NURSE RAHUL-RN AT BEDSIDE. PT RESTING IN BED, AOX2-CONFUSED AND APHASIC, ON ROOM AIR WITH NO IV SITE. LEFT HAND EDEMATUS +3. G-TUBE IN PLACE- FEEDING HAS BEEN DISCONTINUED. PT IS WHEELCHAIR BOUND, INCONTINENT. DISCUSSED PLAN OF CARE AND PT NODDED HEAD. NO S/S OF RESPIRATORY DISTRESS OR DISCOMFORT NOTED AT THIS TIME. BED IN LOWEST POSITION, BED BREAKS ON, BOTH SIDE RAILS UP AND FALL PRECAUTIONS IN PLACE. BEDSIDE TABLE AND CALL LIGHT ARE WITHIN REACH. WILL CONTINUE TO MONITOR.
[2018-08-14 20:00] VITALS: BP 163/96
--- NOTE | 2018-08-14 20:00 | NUR ---
VITAL SIGNS TAKEN AND TOLERATED WELL. ELEVATED BP NOTED. NO S/S OF RESPIRATORY DISTRESS OR DISCOMFORT NOTED AT THIS TIME. WILL CONTINUE TO MONITOR.
--- NOTE | 2018-08-14 21:20 | NUR ---
SCHEDULED MEDICATIONS GIVEN AND TOLERATED WELL. G-TUBE ZERO RESIDUAL. NO S/S OF RESPIRATORY DISTRESS OR DISCOMFORT NOTED AT THIS TIME. WILL CONTINUE TO MONITOR.
--- NOTE | 2018-08-14 21:44 | NUR ---
PT C/O NAUSEA. ZOFRAN GIVEN AND TOLERATED WELL. NO S/S OF RESPIRATORY DISTRESS OR DISCOMFORT NOTED AT THIS TIME. WILL CONTINUE TO MONITOR.
[2018-08-15] VITALS: BP 149/84
--- NOTE | 2018-08-15 | NUR ---
VITAL SIGNS TAKEN AND TOLERATED WELL. NO S/S OF RESPIRATORY DISTRESS OR DISCOMFORT NOTED AT THIS TIME. WILL CONTINUE TO MONITOR.
--- NOTE | 2018-08-15 02:00 | NUR ---
PT SLEEPING IN BED. NO S/S OF RESPIRATORY DISTRESS OR DISCOMFORT NOTED AT THIS TIME. WILL CONTINUE TO MONITOR.
--- NOTE | 2018-08-15 04:00 | NUR ---
PT CONTINUES TO SLEEP IN BED. NO S/S OF RESPIRATORY DISTRESS OR DISCOMFORT NOTED AT THIS TIME. WILL CONTINUE TO MONITOR.
--- NOTE | 2018-08-15 06:00 | NUR ---
PT RESTING IN BED. NO S/S OF RESPIRATORY DISTRESS OR DISCOMFORT NOTED AT THIS TIME. WILL CONTINUE TO MONITOR.
[2018-08-15 07:10] LABS: BASOPHILS % (AUTO) 0.5 % (0.0-2.0); EOSINOPHILS # (AUTO) 0.2 K/uL (0-0.4); HEMATOCRIT 40.3 % (36-52); HEMOGLOBIN 14.1 g/dL (12.0-18.0); LYMPHOCYTES # (AUTO) 1.9 K/uL (2.0-11.5); LYMPHOCYTES % (AUTO) 23.3 % (20.5-51.1); MEAN CORPUSCULAR HEMOGLOBIN 33 pg (27-31); MEAN CORPUSCULAR HGB CONC 35 g/dL (33-37); MEAN CORPUSCULAR VOLUME 95.2 fL (80-94); MONOCYTES # (AUTO) 0.9 K/uL (0.8-1.0); MONOCYTES % (AUTO) 11.8 % (1.7-9.3); NEUTROPHILS # (AUTO) 4.9 K/uL (1.8-7.7); NEUTROPHILS % (AUTO) 61.4 % (42.2-75.2); PLATELET COUNT (AUTO) 233 K/uL (140-450); RED BLOOD CELL COUNT(AUTO) 4.24 MIL/uL (4.20-6.10); RED CELL DISTRIBUTION WIDTH 12.7 % (11.6-13.7)
--- NOTE | 2018-08-15 07:14 | NUR ---
ENDORSED PT CARE TO DAY SHIFT NURSE RAHUL-MARK FOR CONTINUITY OF CARE.
--- NOTE | 2018-08-15 07:16 | NUR ---
RECEIVED BEDSIDE REPORT FROM POLICE RADIO DISPATCHER RN. PT IN STABLE CONDITION. DENIES PAIN AND DISCOMFORT. NO N/V. APHASIC. ABLE TO FOLLOW SIMPLE COMMANDS AND ANSWER YES/NO QUESTIONS WITH NOD/SHAKE OF HEAD. FLACC 0. G-TUBE FEEDING IN PLACE AT 10 ML/HR, RESIDUAL LESS THAN 5 ML. SKIN INTACT. NO IV SITE, IS AWARE. ALL SAFETY PRECAUTIONS IN PLACE, WILL CONTINUE TO MONITOR.
[2018-08-15 08:00] VITALS: BP 148/77
[2018-08-15] MEDS: NACL 0.9% 500 ML IV SCH ×2 (09:05→12:46)
[2018-08-15 09:31] LABS: ANION GAP 10.8 (8-16); CARBON DIOXIDE 28.6 mmol/L (21-32); CHLORIDE 104 mmol/L (98-107); CREATININE 1.1 mg/dL (0.7-1.3); GLUCOSE 108 mg/dL (74-106); POTASSIUM 3.4 mmol/L (3.5-5.1); SODIUM SERUM 140 mmol/L (136-145); UREA NITROGEN, BLOOD 11 mg/dL (7-18)
--- NOTE | 2018-08-15 09:32 | NUR ---
WAS NOTIFIED BY LOGISTICS SUPPORT THAT PATIENT HAS SEIZURE FOR ONE MINUTE. WENT INTO ROOM TO SEE PATIENT IN SEIZURE, WHICH RESOLVED WITHIN 10 SECONDS UPON ENTERING ROOM. BP 150/80, SPO2 97% RA, HR 105. PATIENT OPENING EYES TO VOICE BUT NOT NODDING/SHAKING HEAD TO QUESTIONING. WILL ADMINISTER SCHEDULED KEPPRA AND LAMICTAL. Addendum: 08/15/18 at 1141 by Zonia Ashraf Meng, RN STOPPED TUBE FEEDING
--- NOTE | 2018-08-15 09:37 | NUR ---
NOTIFIED DR. MOORE THAT PATIENT HAD SEIZURE. DR. MOORE ASSESSED PATIENT AT BEDSIDE.
[2018-08-15] MEDS: levETIRAcetam 100 MG/ML ORASYR GT SCH ×2 (09:45→20:18)
[2018-08-15] MEDS: FERROUS SULFATE 300 MG/5 ML UDC GT SCH (09:45)
[2018-08-15] MEDS: CHOLECALCIFEROL 1,000 IU TAB GT SCH (09:46)
[2018-08-15] MEDS: DOCUSATE 100 MG/10 ML UDC GT SCH ×2 (09:46→20:18)
[2018-08-15] MEDS: POTASSIUM CHLORIDE 20% 40 MEQ/15 ML UDC GT SCH (09:46)
[2018-08-15] MEDS: POLYETHYLENE GLYCOL 17 GM/PKT GT SCH (09:46)
[2018-08-15] MEDS: LACTULOSE 20 GM/30 ML UDC GT SCH ×2 (09:46→20:18)
[2018-08-15] MEDS: FOLIC ACID 1 MG TAB GT SCH (09:47)
[2018-08-15] MEDS: MULTIVITAMIN 1 TAB PO SCH (09:47)
[2018-08-15] MEDS: SIMVASTATIN 20 MG TAB PO SCH (09:47)
[2018-08-15] MEDS: LACTOBACILLUS RHAMNOSUS GG 1 EACH CAP PO SCH (09:47)
[2018-08-15] MEDS: FAMOTIDINE 20 MG TAB GT SCH ×2 (09:47→20:19)
[2018-08-15] MEDS: HYDROCHLOROTHIAZIDE 25 MG TAB GT SCH (09:47)
[2018-08-15] MEDS: amLODIPine 5 MG TAB GT SCH (09:47)
[2018-08-15] MEDS: ASPIRIN 81 MG TAB.CHEW PO SCH (09:48)
[2018-08-15] MEDS: ASCORBIC ACID 500 MG/5 ML ORASYR GT SCH ×2 (10:03→20:19)
--- NOTE | 2018-08-15 10:07 | NUR ---
PER DR. VICKERS- OBTAIN HOME MEDICATION LIST FROM [facility] (PATIENT'S PRIMARY RESIDENCE) AND FIND OUT WHEN PATIENT'S LAST SEIZURE WAS.
[2018-08-15] MEDS ORDERED: LORazepam 2 MG/ML VIAL IM/IVP PRN (10:30)
--- NOTE | 2018-08-15 11:07 | NUR ---
CALLED PAGUATE JANET. NO RN AVAILABLE TO ANSWER THE QUESTION OF WHEN PATIENT LAST HAD SEIZURE. Addendum: 08/15/18 at 1125 by Zonia Ashraf Meng RN PER MATTHEW FROM [facility]
--- NOTE | 2018-08-15 11:25 | NUR ---
DID NOT RECEIVE HOME MED LIST. MATTHEW FROM [facility] TO RE-SEND.
--- NOTE | 2018-08-15 11:41 | NUR ---
PER DR. VICKERS, RESTART TUBE FEEDING AT 10 ML/HR AND MONITOR TOLERANCE.
[2018-08-15] MEDS ORDERED: LORazepam 2 MG/ML VIAL IM/IVP SCH (12:28)
--- NOTE | 2018-08-15 12:30 | NUR ---
RESTARTED TUBE FEEDING AT 10 ML/HR. GASTRIC RESIDUAL LESS THAN 5ML.
--- NOTE | 2018-08-15 13:30 | NUR ---
PT RESTING CALMLY IN BED, EYES OPEN SPONTANEOUSLY. ASKED IF PT HAS PAIN OR DISCOMFORT- PT SHOOK HIS HEAD "NO".
--- NOTE | 2018-08-15 14:28 | NUR ---
PT SLEEPING IN BED, WITH LIGHT SNORING. RESPIRATIONS EVEN AND UNLABORED. ALL SAFETY PRECAUTIONS IN PLACE, WILL CONTINUE TO MONITOR.
--- NOTE | 2018-08-15 14:47 | NUR ---
CALLED [facility] TO RESEND HOME MEDICATION LIST. Addendum: 08/15/18 at 1453 by Zonia Ashraf Meng, RN MATTHEW FROM [facility] TO SEND.
--- NOTE | 2018-08-15 15:30 | NUR ---
ENDORSED POC TO MARK MCCALLUM. PT IN STABLE CONDITION. ENDORSED TO CONTINUE TRY OBTAINING HOME MED LIST AND WHEN PATIENT LAST HAD SEIZURE AT [facility].
--- NOTE | 2018-08-15 15:30 | NUR ---
RECEIVED REPORT FROM DAY SHIFT NURSE RAHUL FOR CONTINUITY OF CARE. PT IN STABLE CONDITION. RESPIRATIONS EVEN AND UNLABORED. IV INTACT AND PATENT. SAFETY MEASURES IN PLACE. BED IN LOW POSITION. CALL LIGHT AT BEDSIDE. WILL CONTINUE TO MONITOR.
[2018-08-15 16:00] VITALS: BP 133/69
--- NOTE | 2018-08-15 16:00 | NUR ---
PT LYING IN BED SLEEP AT THIS TIME. VITALS STABLE. RESPIRATIONS EVEN AND UNLABORED. BED IN LOW POSITION. CALL LIGHT AT BEDSIDE. BED ALARM ON. WILL CONTINUE TO MONITOR.
--- NOTE | 2018-08-15 16:08 | NUR ---
CALLED [facility] TO SEND PT HOME MEDICATION LIST. SPOKE WITH JERAMIE WHO STATED THE LEAF SORTER SENT THE LIST AND SHE HAS NOW LEFT. JERAMIE STATED HE IS UNABLE TO SEND THE LIST.
--- NOTE | 2018-08-15 17:53 | NUR ---
CLEANED AFTER BM AND REPOSITIONED, PT IN STABLE CONDITION. BED IN LOW POSITION. BED ALARM ON. CALL LIGHT AT BEDSIDE. WILL CONTINUE TO MONITOR.
--- NOTE | 2018-08-15 18:04 | NUR ---
MEDICATION LIST RECEIVED FROM [facility]. LIST GIVEN TO DR. VICKERS FOR REVIEW.
--- NOTE | 2018-08-15 19:13 | NUR ---
GAVE REPORT TO MEN'S BASKETBALL COACH NURSE FOR CONTINUITY OF CARE. PT IN STABLE CONDITION.
--- NOTE | 2018-08-15 19:14 | NUR ---
RECEIVED REPORT FROM MARK MCCALLUM. PT AWAKE AND ALERT, NON-VERBAL, ON ROOM AIR. PT IS ABLE TO FOLLOW COMMANDS, ABLE TO MAKE NEEDS KNOWN. PT IS BEDBOUND. SKIN IS INTACT. PT HAS A 24G IV TO RIGHT WRIST, ASYMPTOMATIC AND INTACT. NO SIGNS OF DISTRESS NOTED AT THIS TIME. FLACC 0 VITAL SIGNS STABLE. POSITIONED PT FOR COMFORT. BED IN LOWEST POSITION AND CALL LIGHT WITHIN REACH. WILL CONTINUE TO MONITOR.
[2018-08-15] MEDS ORDERED: PHENYTOIN 100 MG/2 ML VIAL IVP SCH (20:00)
[2018-08-15] MEDS ORDERED: PHENYTOIN 100 MG/4 ML UDC GT SCH (20:00)
--- NOTE | 2018-08-15 20:28 | NUR ---
ADMINISTERED SCHEDULED MEDICATIONS FLUSHING AFTER EACH MED, PT TOLERATED WELL.
--- NOTE | 2018-08-15 22:15 | NUR ---
RECEIVED REPORT FROM MARK MCCALLUM. PT AWAKE AND ALERT, NON-VERBAL, ON ROOM AIR. PT IS ABLE TO FOLLOW COMMANDS, ABLE TO MAKE NEEDS KNOWN. PT IS BEDBOUND. SKIN IS INTACT. PT HAS A 24G IV TO RIGHT WRIST, ASYMPTOMATIC AND INTACT. NO SIGNS OF DISTRESS NOTED AT THIS TIME. FLACC 0 VITAL SIGNS STABLE. POSITIONED PT FOR COMFORT. BED IN LOWEST POSITION AND CALL LIGHT WITHIN REACH. WILL CONTINUE TO MONITOR. Addendum: 08/16/18 at 0430 by Shira Adams RN WRONG NOTE
[2018-08-16] VITALS: BP 150/83
--- NOTE | 2018-08-16 | NUR ---
FLACC 0 VITAL SIGNS STABLE. POSITIONED PT FOR COMFORT. BED IN LOWEST POSITION AND CALL LIGHT WITHIN REACH. WILL CONTINUE TO MONITOR.
--- NOTE | 2018-08-16 04:00 | NUR ---
CHANGED TUBE FEEDING AND STARTED NEW BAG.
--- NOTE | 2018-08-16 07:15 | NUR ---
ENDORSED PT TO DAY SHIFT RN FOR CONTINUITY OF CARE. PT IN STABLE CONDITION. REMY
--- NOTE | 2018-08-16 07:15 | NUR ---
ENDORSED PT TO DAY SHIFT RN REMY FOR CONTINUITY OF CARE. PT IN STABLE CONDITION.
--- NOTE | 2018-08-16 07:30 | NUR ---
RECEIVED PT AAOX1, NONE VERBAL. CONFUSED. NO SOB NOTED. NO C/O PAIN AT THIS TIME. IV TO RT HAND PATENT AND INTACT. CHEST CLEAR. ABDOMEN SOFT, BOWEL SOUNDS PRESENT, WITH G-TUBE PATENT, RESIDUAL OF 10 MLS NOTED. INSTRUCTED PT TO CALL FOR ASSISTANCE, CALL LIGHT WITHIN REACH. BED ALARM ON WITH 3 SIDE RAILS RAISED UP. WILL REPOSITION PT STEVE 2 HRS. .
[2018-08-16 08:00] VITALS: BP 161/76
[2018-08-16] MEDS: DOCUSATE 100 MG/10 ML UDC GT SCH (09:00)
[2018-08-16] MEDS: POLYETHYLENE GLYCOL 17 GM/PKT GT SCH (09:00)
[2018-08-16] MEDS: LACTULOSE 20 GM/30 ML UDC GT SCH (09:00)
--- NOTE | 2018-08-16 09:00 | NUR ---
NO SEIZURES NOTED AFTER YESTERDAY'S EPISODE.
[2018-08-16] MEDS ORDERED: POTASSIUM CHLORIDE 20% 40 MEQ/15 ML UDC GT SCH ×2 (09:51→13:29)
[2018-08-16] MEDS: POTASSIUM CHLORIDE 20% 40 MEQ/15 ML UDC GT SCH (10:08)
[2018-08-16] MEDS: ASCORBIC ACID 500 MG/5 ML ORASYR GT SCH (10:09)
[2018-08-16] MEDS: PHENYTOIN 100 MG/4 ML UDC GT SCH ×2 (10:09→14:19)
[2018-08-16] MEDS: levETIRAcetam 100 MG/ML ORASYR GT SCH (10:10)
[2018-08-16] MEDS: FERROUS SULFATE 300 MG/5 ML UDC GT SCH (10:10)
[2018-08-16] MEDS: MULTIVITAMIN 1 TAB PO SCH (10:11)
[2018-08-16] MEDS: LACTOBACILLUS RHAMNOSUS GG 1 EACH CAP PO SCH (10:11)
[2018-08-16] MEDS: SIMVASTATIN 20 MG TAB PO SCH (10:11)
[2018-08-16] MEDS: CHOLECALCIFEROL 1,000 IU TAB GT SCH (10:12)
[2018-08-16] MEDS: FAMOTIDINE 20 MG TAB GT SCH (10:12)
[2018-08-16] MEDS: FOLIC ACID 1 MG TAB GT SCH (10:12)
[2018-08-16] MEDS: amLODIPine 5 MG TAB GT SCH (10:12)
[2018-08-16] MEDS: ASPIRIN 81 MG TAB.CHEW PO SCH (10:12)
[2018-08-16] MEDS: HYDROCHLOROTHIAZIDE 25 MG TAB GT SCH (10:14)
--- NOTE | 2018-08-16 11:00 | NUR ---
CONTACTED PT'S FACILITY FOR 2X, NO ANSWER.
[2018-08-16 11:01] LABS: ANION GAP 9.6 (8-16); CARBON DIOXIDE 33.1 mmol/L (21-32); CHLORIDE 102 mmol/L (98-107); CREATININE 1.1 mg/dL (0.7-1.3); GLUCOSE 110 mg/dL (74-106); POTASSIUM 3.7 mmol/L (3.5-5.1); SODIUM SERUM 141 mmol/L (136-145); UREA NITROGEN, BLOOD 10 mg/dL (7-18)
[2018-08-16 11:03] LABS: BASOPHILS # (AUTO) 0.1 K/uL (0.00-0.22); BASOPHILS % (AUTO) 0.8 % (0.0-2.0); EOSINOPHILS # (AUTO) 0.4 K/uL (0-0.4); EOSINOPHILS % (AUTO) 5.3 % (0.0-4.0); HEMATOCRIT 41.2 % (36-52); HEMOGLOBIN 13.9 g/dL (12.0-18.0); LYMPHOCYTES # (AUTO) 1.9 K/uL (2.0-11.5); LYMPHOCYTES % (AUTO) 28.4 % (20.5-51.1); MEAN CORPUSCULAR HEMOGLOBIN 33 pg (27-31); MEAN CORPUSCULAR HGB CONC 34 g/dL (33-37); MEAN CORPUSCULAR VOLUME 96.6 fL (80-94); MONOCYTES # (AUTO) 0.9 K/uL (0.8-1.0); MONOCYTES % (AUTO) 13.8 % (1.7-9.3); NEUTROPHILS # (AUTO) 3.5 K/uL (1.8-7.7); NEUTROPHILS % (AUTO) 51.7 % (42.2-75.2); PLATELET COUNT (AUTO) 233 K/uL (140-450); RED BLOOD CELL COUNT(AUTO) 4.27 MIL/uL (4.20-6.10); RED CELL DISTRIBUTION WIDTH 12.6 % (11.6-13.7); WHITE BLOOD COUNT (AUTO) 6.7 K/uL (4.8-10.8)
[2018-08-16] MEDS ORDERED: SULF-59 PO (11:15)
[2018-08-16] MEDS ORDERED: [UNRECOGNIZED DRUG - CODE] GT (11:17)
[2018-08-16 11:19] LABS: MAGNESIUM 2.2 mg/dL (1.8-2.4); PHOSPHORUS 3.9 mg/dL (2.5-4.9)
[2018-08-16 12:00] VITALS: BP 138/69
--- NOTE | 2018-08-16 12:00 | NUR ---
GOT HOLD OF MATTHEW CARLOS, PT'S CAREGIVER AT [facility], STATED SHE WILL CALL ME BACK FOR THE ETA OF THE PERSON WHO WILL DIGITAL PHOTO PRINTER THE PT.
--- NOTE | 2018-08-16 12:05 | NUR ---
G-TUBE FEEDING TO TOLERATED WELL BY PT, NO N&V NOTED. INCREASED FEEDING 20 MLS. WILL CONTINUE TO MONITOR PT.
--- NOTE | 2018-08-16 13:30 | NUR ---
MATTHEW CARLOS CALLED AND STATED THAT THEY WILL CELLOPHANE TESTER THE PT BETWEEN 5-6 PM TODAY.
--- NOTE | 2018-08-16 16:00 | NUR ---
G-TUBE FEEDING TO TOLERATED WELL BY PT, NO N&V NOTED. INCREASED FEEDING TO 30 MLS. WILL CONTINUE TO MONITOR PT.
--- NOTE | 2018-08-16 17:30 | NUR ---
MATTHEW CARLOS CAME TO RUBBER GASKET INSPECTOR TRIMMER. DISCHARGE INSTRUCTIONS GIVEN TO MATTHEW PT'S CAREGIVER, VERBALIZED UNDERSTANDING OF THE TEACHINGS AND THE NEED TO FOLLOW WITH PCP WITHIN 7 DAYS. ARM BANDS AND IV REMOVED, CANNULA TIP INTACT. G-TUBE FLUSHED AND CLAMPED.
--- NOTE | 2018-08-16 17:35 | NUR ---
PT WHEELED TO THE FRONT LOBBY BY PT'S CAREGIVER IN HIS OWN WHEELCHAIR IN STABLE CONDITION. NO SOB NOTED. NO COMPLAINTS MADE. PT IS D/C TO [facility].
== END 2018-08-16 17:35 | disposition home or self-care (01) | DRG 388 ==
LOC: MED 10:08 → MTU 13:26
PROVIDERS: ADMIT General Practice; ATTEND General Practice
PROC: 0D9670Z Drainage of Stomach with Drainage Device, Via Natural or Artificial Opening (ICD-10-PCS; principal; 2018-08-11)
DX: K56.699 Other intestinal obstruction unspecified as to partial versus complete obstruction (principal); G82.50 Quadriplegia, unspecified; N39.0 Urinary tract infection, site not specified; F32.3 Major depressive disorder, single episode, severe with psychotic features; N13.30 Unspecified hydronephrosis; K56.41 Fecal impaction; K21.9 Gastro-esophageal reflux disease without esophagitis; E78.5 Hyperlipidemia, unspecified; F32.9 Major depressive disorder, single episode, unspecified; G40.909 Epilepsy, unspecified, not intractable, without status epilepticus; I10 Essential (primary) hypertension; R13.10 Dysphagia, unspecified; R73.03 Prediabetes; D64.9 Anemia, unspecified; I70.90 Unspecified atherosclerosis; K26.9 Duodenal ulcer, unspecified as acute or chronic, without hemorrhage or perforation; H26.9 Unspecified cataract; H91.90 Unspecified hearing loss, unspecified ear; F79 Unspecified intellectual disabilities; E87.6 Hypokalemia; Z93.1 Gastrostomy status; Z79.899 Other long term (current) drug therapy
CPT/HCPCS: 36415; 70450; 71045; 74018; 74250; 80048; 80053; 80185; 81001; 82150; 83036; 83690; 83735; 83880; 84100; 84439; 84443; 84484; 85025; 85610; 85730; 87081; 87086; 87186; 93005; 93970; 99285; C1758; C9113; J0360; J0696; J1165; J1644; J2001; J2060; J3480; J7030; J7042; J7060; J8597; Q0092; Q0162

== ENCOUNTER 2018-08-22 10:25 | Emergency (ER) | payer OTHER, MEDICAID ==
[~2018-08-22] VITALS: Ht 177.8 cm; Wt 72.6 kg
[~2018-08-22 10:25] MED LIST changes: +AMLO5TAB6 GT; +BISA10SU27 RC; +COL100L GT; +FLEPED RC; +MULT9LIQ2 PO; +ORE25 GT; +PHENERGAN DM GT; +SIMV20TA1 PO; +SULF-59 PO; +[UNRECOGNIZED DRUG - CODE] GT
[2018-08-22 10:29] VITALS: BP 144/72
--- NOTE | 2018-08-22 10:48 | NUR ---
breading machine tender at bedside.
--- NOTE | 2018-08-22 10:48 | NUR ---
Patient transferred to bed 2 via wheelchair. RN evaluating patient at bedside.
--- NOTE | 2018-08-22 10:50 | NUR ---
COOPERATIVE NON VERBAL 73 YR MALE BIB NETWORK PLANNER FROM [facility] C/O PULLED OUT G TUBE X LAST NIGHT. NO C/O PAIN AT THIS TIME HX: MILD INTELLECTUAL DISABILITY,SEIZURE,HTN,ANEMIA,SCLEROSIS,LEFT HYDRONEPHROSIS, MYOPIA CATARACTS, MOD HEARING LOSS, VISUAL IMPAIRMENT, INCONTINENT, GERD.
--- NOTE | 2018-08-22 10:53 | NUR ---
Dr. Noriega evaluating patient at bedside.
--- NOTE | 2018-08-22 11:36 | NUR ---
turbine technician at bedside.
--- NOTE | 2018-08-22 11:42 | NUR ---
30 CC DYE INJECTED THROUGH THE G-TUBE PER XRAY AT BEDSIDE.
[2018-08-22 12:50] VITALS: BP 148/82
--- NOTE | 2018-08-22 12:50 | NUR ---
Patient discharged with v/s stable. Written and verbal after care instructions given and explained to family day care provider. Patient's family day care provider from [facility] verbalized understanding. Wheel Chair Assisted by caregiver. All questions addressed prior to discharge. Advised to follow up with PMD.
== END 2018-08-22 12:50 | disposition home or self-care (01) ==
LOC: MED 10:25
DX: Z43.1 Encounter for attention to gastrostomy (principal); K21.9 Gastro-esophageal reflux disease without esophagitis; I10 Essential (primary) hypertension; Z79.899 Other long term (current) drug therapy; Z79.82 Long term (current) use of aspirin
CPT/HCPCS: 43762; 74241; 99284

== ENCOUNTER 2018-08-24 10:57 | Inpatient (IN) | payer OTHER, MEDICAID ==
[~2018-08-24] VITALS: Ht 177.8 cm; Wt 83.5 kg
[~2018-08-24 10:57] MED LIST changes: -AMLO2.5T GT; -ATOR20TA40 PO; -BISA10SU1 RC; -DOCU-299 GT; -MVII GT; -PHE6.25L GT; -PHEN100C3 GT; -[UNRECOGNIZED DRUG - CODE] PO
[2018-08-24 11:15] VITALS: BP 138/83
--- NOTE | 2018-08-24 11:44 | NUR ---
PT TO ER BED 6 VIA W/C
--- NOTE | 2018-08-24 12:15 | NUR ---
73 yo M brought in by caretake who noted pt with 4-5 episodes of emesis this morning. Last feeding 6am g-tube. No diarrhea or fever. Hx of profound mental disability, seizure, g-tube.
[2018-08-24] MEDS ORDERED: NACL 0.9% 1,000 ML IV ONE (12:16)
[2018-08-24] MEDS ORDERED: ONDANSETRON 4 MG/2 ML VIAL IVP ONE (12:20)
[2018-08-24 13:05] LABS: BASOPHILS # (AUTO) 0.1 K/uL (0.00-0.22); BASOPHILS % (AUTO) 0.7 % (0.0-2.0); EOSINOPHILS # (AUTO) 0.2 K/uL (0-0.4); EOSINOPHILS % (AUTO) 2.4 % (0.0-4.0); HEMOGLOBIN 15.3 g/dL (12.0-18.0); LYMPHOCYTES % (AUTO) 23.8 % (20.5-51.1); MEAN CORPUSCULAR HEMOGLOBIN 33 pg (27-31); MEAN CORPUSCULAR HGB CONC 34 g/dL (33-37); MEAN CORPUSCULAR VOLUME 96.9 fL (80-94); MONOCYTES # (AUTO) 0.9 K/uL (0.8-1.0); MONOCYTES % (AUTO) 10.2 % (1.7-9.3); NEUTROPHILS # (AUTO) 5.4 K/uL (1.8-7.7); NEUTROPHILS % (AUTO) 62.9 % (42.2-75.2); PLATELET COUNT (AUTO) 289 K/uL (140-450); RED BLOOD CELL COUNT(AUTO) 4.64 MIL/uL (4.20-6.10); RED CELL DISTRIBUTION WIDTH 12.8 % (11.6-13.7); WHITE BLOOD COUNT (AUTO) 8.6 K/uL (4.8-10.8)
[2018-08-24 13:51] LABS: ANION GAP 14.3 (8-16); CARBON DIOXIDE 27.4 mmol/L (21-32); CHLORIDE 98 mmol/L (98-107); CREATININE 1.4 mg/dL (0.7-1.3); GLUCOSE 122 mg/dL (74-106); POTASSIUM 3.7 mmol/L (3.5-5.1); SODIUM SERUM 136 mmol/L (136-145); UREA NITROGEN, BLOOD 22 mg/dL (7-18)
[2018-08-24 13:59] LABS: ALBUMIN 3.8 g/dL (3.4-5.0); ASPARTATE AMINOTRANSFERASE 25 U/L (15-37); LIPASE 469 U/L (73-393); TOTAL BILIRUBIN 0.3 mg/dL (0.0-1.0)
[2018-08-24] MEDS: NACL 0.9% 1,000 ML IV SCH (15:22)
[2018-08-24] MEDS ORDERED: ACETAMINOPHEN 325 MG TAB PO PRN (15:25)
[2018-08-24] MEDS ORDERED: ONDANSETRON 4 MG/2 ML VIAL IVP PRN (15:25)
[2018-08-24 16:23] LABS: PROTHROMBIN TIME 9.7 secs (10.8-13.4)
--- NOTE | 2018-08-24 16:25 | NUR ---
Pt report given to Yara . Transfer of care at this time.
--- NOTE | 2018-08-24 16:25 | NUR ---
RECEIVED PT FROM ED NURSE JULIO. PT IS AWAKE BUT CONFUSED. PT IS ON ROOM AIR, SKIN IS INTACT. PT IS NON-VERBAL AND HAS PROFOUND MENTAL DISABILITY. IV SITE NOTED ON THE R AC, 20 G, PATENT AND INTACT. FALL PRECAUTIONS IN PLACE, CONTACT ISOLATION IN PLACE. SEIZURE PRECAUTIONS SET UP. CALL LIGHT GIVEN WITHIN REACH. WILL CONTINUE TO MONITOR.
[2018-08-24 16:58] LABS: MAGNESIUM 2.4 mg/dL (1.8-2.4); PHOSPHORUS 3.7 mg/dL (2.5-4.9)
[2018-08-24 16:59] LABS: FREE T4 (FREE THYROXINE) 0.85 ng/dL (0.76-1.46)
--- NOTE | 2018-08-24 17:22 | NUR ---
MRSA NARES SWAB TAKEN TO LAB.
--- NOTE | 2018-08-24 17:28 | NUR ---
PT'S OWN MEDS RECONCILED AND SENT TO KEEP IN PHARMACY.
[2018-08-24 18:46] VITALS: BP 150/93
[2018-08-24] MEDS ORDERED: TRAV5SOL OP (18:47)
[2018-08-24] MEDS ORDERED: FERR325E14 PO (18:47)
[2018-08-24] MEDS ORDERED: LACO50TA PO (18:47)
[2018-08-24] MEDS ORDERED: VARE1TAB PO (18:47)
[2018-08-24] MEDS ORDERED: ORE25 PO (18:47)
[2018-08-24] MEDS ORDERED: VITD1000 PO (18:47)
[2018-08-24] MEDS ORDERED: SIMV20TA1 GT (18:47)
[2018-08-24] MEDS ORDERED: SULF-59 PO (18:47)
[2018-08-24] MEDS ORDERED: MIRABULK PO (18:47)
[2018-08-24] MEDS ORDERED: COL100L GT (18:47)
[2018-08-24] MEDS ORDERED: ZONI100C5 GT (18:47)
[2018-08-24] MEDS ORDERED: RANI150C PO (18:47)
[2018-08-24] MEDS ORDERED: PHEN100C3 PO (18:47)
[2018-08-24] MEDS ORDERED: AMLO2.5T PO (18:47)
[2018-08-24] MEDS ORDERED: KEP500L GT (18:47)
[2018-08-24] MEDS ORDERED: ASCO500T45 PO (18:47)
[2018-08-24] MEDS ORDERED: LAM25 GT (18:47)
[2018-08-24] MEDS ORDERED: FOLI0.8T PO (18:47)
[2018-08-24] MEDS ORDERED: LACT10SO1 PO (18:47)
[2018-08-24] MEDS ORDERED: POTA10CE85 PO (18:47)
--- NOTE | 2018-08-24 18:55 | NUR ---
TUBE FEEDING FORMULA HUNG AND RUNNING 10 ML/HR, WITH 140 ML WATER FLUSHES Q4H.
--- NOTE | 2018-08-24 19:40 | NUR ---
PT ENDORSED TO SECOND SHIFT SUPERVISOR IN STABLE CONDITION
--- NOTE | 2018-08-24 19:41 | NUR ---
RECEIVED BEDSIDE REPORT FROM DAYSHIFT RN. PATIENT IN STABLE CONDITION. SAFETY PRECAUTIONS IN PLACE. WILL CONTINUE TO MONITOR.
[2018-08-24] MEDS: ZONISAMIDE 50 MG GT SCH (21:00)
[2018-08-24] MEDS: Zonisamide 100 MG CAP GT SCH (21:00)
[2018-08-24] MEDS: levETIRAcetam 100 MG/ML ORASYR GT SCH (22:38)
[2018-08-24] MEDS: LACTULOSE 20 GM/30 ML UDC GT SCH (22:39)
[2018-08-24] MEDS: ASCORBIC ACID 500 MG TAB PO SCH (22:39)
--- NOTE | 2018-08-24 22:39 | NUR ---
ADMINISTERED SCHEDULED MEDICATIONS. PATIENT TOLERATED WELL. 20 ML RESIDUAL PRIOR TO MEDICATION ADMINISTRATION. WILL INCREASE FEEDING TO 20 MLS PER ORDER.
[2018-08-25] VITALS: BP 151/69
--- NOTE | 2018-08-25 00:45 | NUR ---
PATIENT SLEEPING. WILL CONTINUE TO MONITOR.
--- NOTE | 2018-08-25 03:45 | NUR ---
PATIENT SLEEPING. NO SIGNS OF DISTRESS. FEEDING RUNNING AT 20 ML.
--- NOTE | 2018-08-25 06:00 | NUR ---
20 ML RESIDUAL. INCREASED FEEDING RATE TO 30 ML PER ORDER.
--- NOTE | 2018-08-25 07:19 | NUR ---
GAVE REPORT TO DAY SHIFT RN. ENDORSING PATIENT IN STABLE CONDITION.
--- NOTE | 2018-08-25 07:20 | NUR ---
RECEIVED PT REPORT FROM DIGITAL MARKETING SPECIALIST NURSE. PT IS AWAKE IN BED, NO S/S OF ACUTE DISTRESS OR SOB. PT IS ON ROOM AIR, SKIN INTACT. IV SITE ON THE RAC 20 G, INFUSING NS 10 ML/HR. FALL AND SEIZURE PRECAUTIONS ARE IN PLACE. CALL LIGHT WITHIN REACH. WILL CONTINUE TO MONITOR.
[2018-08-25 08:00] VITALS: BP 157/73
--- NOTE | 2018-08-25 08:29 | NUR ---
PATIENT HAS BEEN SCREENED AND CATEGORIZED HIGH NUTRITION RISK. PATIENT WILL BE SEEN WITHIN 1-2 DAYS OF ADMISSION. 08/25/18-08/26/[address]
[2018-08-25] MEDS ORDERED: BISACODYL 10 MG SUPP RC SCH (08:30)
[2018-08-25 09:00] LABS: BASOPHILS # (AUTO) 0.1 K/uL (0.00-0.22); BASOPHILS % (AUTO) 0.8 % (0.0-2.0); EOSINOPHILS # (AUTO) 0.5 K/uL (0-0.4); EOSINOPHILS % (AUTO) 7.3 % (0.0-4.0); HEMOGLOBIN 13.6 g/dL (12.0-18.0); LYMPHOCYTES # (AUTO) 2.3 K/uL (2.0-11.5); LYMPHOCYTES % (AUTO) 34.2 % (20.5-51.1); MEAN CORPUSCULAR HEMOGLOBIN 33 pg (27-31); MEAN CORPUSCULAR HGB CONC 35 g/dL (33-37); MEAN CORPUSCULAR VOLUME 95.5 fL (80-94); MONOCYTES % (AUTO) 14.9 % (1.7-9.3); NEUTROPHILS # (AUTO) 2.8 K/uL (1.8-7.7); NEUTROPHILS % (AUTO) 42.8 % (42.2-75.2); PLATELET COUNT (AUTO) 257 K/uL (140-450); RED BLOOD CELL COUNT(AUTO) 4.08 MIL/uL (4.20-6.10); RED CELL DISTRIBUTION WIDTH 12.7 % (11.6-13.7); WHITE BLOOD COUNT (AUTO) 6.6 K/uL (4.8-10.8)
[2018-08-25] MEDS ORDERED: DOCUSATE 100 MG/10 ML UDC GT SCH (09:00)
[2018-08-25] MEDS: ZONISAMIDE 50 MG GT SCH ×2 (09:00→21:00)
[2018-08-25] MEDS: levETIRAcetam 100 MG/ML ORASYR GT SCH ×2 (09:00→23:31)
[2018-08-25] MEDS: Zonisamide 100 MG CAP GT SCH ×2 (09:00→21:00)
[2018-08-25] MEDS ORDERED: amLODIPine 5 MG TAB PO SCH (09:00)
[2018-08-25] MEDS ORDERED: FERROUS SULFATE 325 MG TABEC PO SCH (09:00)
[2018-08-25] MEDS ORDERED: SODIUM PHOSPHATE 118 ML ENEM RC SCH (09:30)
[2018-08-25] MEDS ORDERED: SODIUM PHOSPHATE 118 ML ENEM RC PRN (09:30)
[2018-08-25 09:53] LABS: CARBON DIOXIDE 24.4 mmol/L (21-32); CHLORIDE 101 mmol/L (98-107); CREATININE 1.1 mg/dL (0.7-1.3); GLUCOSE 126 mg/dL (74-106); POTASSIUM 3.4 mmol/L (3.5-5.1); SODIUM SERUM 137 mmol/L (136-145); UREA NITROGEN, BLOOD 17 mg/dL (7-18)
[2018-08-25 09:59] LABS: CHOL/HDL RATIO 2.3 (1-4.5); MAGNESIUM 2.2 mg/dL (1.8-2.4)
[2018-08-25 10:05] LABS: AMYLASE 130 U/L (25-115)
[2018-08-25 10:06] LABS: LIPASE 216 U/L (73-393)
[2018-08-25] MEDS ORDERED: POTASSIUM CHLORIDE 20% 40 MEQ/15 ML UDC GT SCH ×2 (10:30→18:45)
[2018-08-25] MEDS: ASCORBIC ACID 500 MG TAB PO SCH ×2 (10:44→23:31)
[2018-08-25] MEDS: HYDROCHLOROTHIAZIDE 25 MG TAB GT SCH (10:45)
[2018-08-25] MEDS: CHOLECALCIFEROL 1,000 IU TAB GT SCH (10:45)
[2018-08-25] MEDS ORDERED: LACT1.4C PO (10:46)
[2018-08-25] MEDS: LACTULOSE 20 GM/30 ML UDC GT SCH ×2 (10:46→23:31)
[2018-08-25] MEDS: POLYETHYLENE GLYCOL 17 GM/PKT GT SCH (10:48)
[2018-08-25] MEDS: PHENYTOIN 100 MG/4 ML UDC PO SCH ×3 (10:48→17:36)
[2018-08-25] MEDS ORDERED: TRAV5SOL OP (11:05)
[2018-08-25] MEDS ORDERED: ASPI81EC97 GT (11:05)
[2018-08-25] MEDS ORDERED: BISA10SU27 RC (11:05)
[2018-08-25] MEDS ORDERED: CRAN450C GT (11:05)
[2018-08-25] MEDS ORDERED: MULT9LIQ2 PO (11:05)
[2018-08-25] MEDS ORDERED: VARE1TAB PO (11:05)
[2018-08-25] MEDS ORDERED: ZONI100C5 GT ×2 (11:05→11:47)
[2018-08-25] MEDS ORDERED: ASCO500T45 GT (11:05)
[2018-08-25] MEDS ORDERED: ZONI50CA2 GT (11:05)
[2018-08-25] MEDS ORDERED: PROM6.2555 GT (11:05)
[2018-08-25] MEDS ORDERED: COL100L GT (11:05)
[2018-08-25] MEDS ORDERED: FLEPED RC (11:06)
[2018-08-25] MEDS ORDERED: POTA20SO16 GT (11:06)
[2018-08-25] MEDS ORDERED: SODIUM PHOSPHATE PEDIATRIC 67.5 ML ENEM RC PRN (11:10)
[2018-08-25] MEDS ORDERED: BISACODYL 10 MG SUPP RC PRN (11:10)
[2018-08-25] MEDS ORDERED: PROMETHAZINE HCL GT SCH (11:10)
[2018-08-25] MEDS ORDERED: LAM200 GT ×3 (11:31→11:47)
[2018-08-25] MEDS ORDERED: PROMETHAZINE DM 6.25/15MG-5ML ORASYR PO PRN (11:50)
--- NOTE | 2018-08-25 12:00 | NUR ---
PT STRAIGHT CATHED AND COLLECTED URINE SAMPLE. TAKEN TO LAB.
[2018-08-25 12:34] LABS: APPEARANCE,URINE CLEAR (CLEAR); BILIRUBIN,URINE NEGATIVE (NEGATIVE); BLOOD, URINE NEGATIVE (NEGATIVE); COLOR,URINE YELLOW (YELLOW); LEUKOCYTE ESTERASE ,URINE NEGATIVE (NEGATIVE); NITRITE, URINE NEGATIVE (NEGATIVE); UGLUCOSE NEGATIVE (NEGATIVE)
[2018-08-25 13:21] LABS: WBC,URINE 0-5 /HPF (0-5)
--- NOTE | 2018-08-25 14:16 | NUR ---
08/25/18 RD INITIAL ASSESSMENT COMPLETED PLEASE REFER TO NUTRITION ASSESSMENT UNDER CARE ACTIVITY FOR ESTIMATED NUTRITIONAL NEEDS. 1. CONTINUE JEVITY @ 65 ML/HR -THIS WILL PROVIDE 1560 ML, 1872 KCAL, AND 86 GM OF PROTEIN WHICH MEETS 100% OF ESTIMATED NEEDS 2. CONTINUE 140 ML OF FREE WATER FLUSH Q4H 3. RD TO FOLLOW-UP 2-3 DAYS, HIGH RISK LITZY [address]LLING[address] RD
[2018-08-25 16:00] VITALS: BP 121/72
[2018-08-25] MEDS: NACL 0.9% 1,000 ML IV SCH (16:10)
--- NOTE | 2018-08-25 16:27 | NUR ---
PRN FLEET ENEMA ADMINISTERED PER DR'S REQUEST SINCE PT DID NOT HAVE A BM TODAY YET. WILL MONITOR FOR RESULTS.
--- NOTE | 2018-08-25 17:20 | NUR ---
PT HAD A LARGE LIQUID BM. PT WAS CLEANED, CHANGED, AND REPOSITIONED.
--- NOTE | 2018-08-25 18:36 | NUR ---
COLLECTED A SAMPLE OF URINE VIA STRAIGHT CATH PER MD ORDER, AND SENT TO LAB FOR URINE CULTURE.
[2018-08-25] MEDS ORDERED: MAGNESIUM CITRATE 300 ML BTL PO SCH (18:45)
--- NOTE | 2018-08-25 19:20 | NUR ---
PT ENDORSED TO MARINE SERVICE OPERATOR IN STABLE CONDITION.
--- NOTE | 2018-08-25 19:21 | NUR ---
RECEIVED BEDSIDE REPORT FROM DAY SHIFT RN. PATIENT STABLE. NO SIGNS OF DISTRESS ON RA. SAFETY PRECAUTIONS IN PLACE.
[2018-08-25] MEDS ORDERED: NON-FORMULARY ITEM (Lactulose 30 ML) PO SCH (21:00)
[2018-08-25] MEDS: LATANOPROST 0.005% OP 2.5 ML BTL OP SCH (21:00)
[2018-08-25] MEDS ORDERED: NON-FORMULARY ITEM (Ranitidine HCl (Ranitidine Hcl) 150 MG) PO SCH (21:00)
[2018-08-25] MEDS ORDERED: ASCORBIC ACID 500 MG TAB GT SCH (21:00)
[2018-08-25] MEDS ORDERED: NON-FORMULARY ITEM (Varenicline Tartrate (Chantix) 1 TAB) PO SCH (21:00)
[2018-08-25] MEDS ORDERED: ZONISAMIDE GT SCH ×2 (21:00)
[2018-08-25] MEDS ORDERED: CRANBERRY FRUIT 500 MG GT SCH (21:00)
[2018-08-25] MEDS ORDERED: NON-FORMULARY ITEM (Travoprost (Travatan Z 5 Ml) 1 DROP) OP SCH (21:00)
[2018-08-25] MEDS: DOCUSATE 100 MG/10 ML UDC GT SCH (23:31)
[2018-08-25] MEDS: FAMOTIDINE 20 MG TAB PO SCH (23:31)
--- NOTE | 2018-08-25 23:31 | NUR ---
ADMINISTERED SCHEDULED MEDICATIONS. PATIENT TOLERATED WELL. NO RESIDUAL NOTED FROM G-TUBE. PATIENT ABSORBING FEEDING WELL.
[2018-08-25] MEDS: SULFAMETH/TRIMETH DS 800/160MG 1 TAB PO SCH (23:32)
[2018-08-25] MEDS: SIMVASTATIN 20 MG TAB GT SCH (23:32)
[2018-08-26] VITALS: BP 150/88
--- NOTE | 2018-08-26 03:20 | NUR ---
PATIENT SLEEPING. NO SIGNS OF DISTRESS. SAFETY PRECAUTIONS IN PLACE.
--- NOTE | 2018-08-26 06:15 | NUR ---
RESUMED FEEDING AFTER IMAGING WAS COMPLETED. REPOSITIONED PATIENT FOR COMFORT.
--- NOTE | 2018-08-26 07:26 | NUR ---
ENDORSED PATIENT TO DAY SHIFT RN IN STABLE CONDITION. NO SIGNS OF DISTRESS ON RA, SAFETY PRECAUTIONS IN PLACE.
--- NOTE | 2018-08-26 07:27 | NUR ---
RECEIVED BEDSIDE REPORT FROM LEASE OUT WORKER RN, PT AWAKE, LIMITED VOCABULARY, SKIN INTACT, ON RA, IN NO RESPIRATORY DISTRESS, G TUBE LUQ GEVITY 1.2 RUNNING 65ML/HR, KUB TO BE DONE LATER, WILL POST NPO SIGN, BED BOUND, IV R AC RUNNING NS 10ML/HR 20 G, CALL LIGHT WITHIN REACH, BED LOW, WILL CONTINUE TO MONITOR
[2018-08-26 08:00] VITALS: BP 150/79
[2018-08-26 08:21] LABS: BASOPHILS % (AUTO) 0.6 % (0.0-2.0); EOSINOPHILS # (AUTO) 0.4 K/uL (0-0.4); EOSINOPHILS % (AUTO) 4.5 % (0.0-4.0); HEMATOCRIT 40.1 % (36-52); HEMOGLOBIN 13.8 g/dL (12.0-18.0); LYMPHOCYTES # (AUTO) 2.2 K/uL (2.0-11.5); LYMPHOCYTES % (AUTO) 27.3 % (20.5-51.1); MEAN CORPUSCULAR HEMOGLOBIN 33 pg (27-31); MEAN CORPUSCULAR HGB CONC 34 g/dL (33-37); MEAN CORPUSCULAR VOLUME 95.5 fL (80-94); MONOCYTES % (AUTO) 12.3 % (1.7-9.3); NEUTROPHILS # (AUTO) 4.4 K/uL (1.8-7.7); NEUTROPHILS % (AUTO) 55.3 % (42.2-75.2); PLATELET COUNT (AUTO) 268 K/uL (140-450); RED CELL DISTRIBUTION WIDTH 12.7 % (11.6-13.7); WHITE BLOOD COUNT (AUTO) 7.9 K/uL (4.8-10.8)
[2018-08-26 08:40] LABS: ANION GAP 12.2 (8-16); CHLORIDE 102 mmol/L (98-107); CREATININE 1.2 mg/dL (0.7-1.3); GLUCOSE 140 mg/dL (74-106); POTASSIUM 4.2 mmol/L (3.5-5.1); SODIUM SERUM 138 mmol/L (136-145); UREA NITROGEN, BLOOD 17 mg/dL (7-18)
[2018-08-26 09:00] LABS: MAGNESIUM 2.5 mg/dL (1.8-2.4); PHOSPHORUS 2.9 mg/dL (2.5-4.9)
[2018-08-26] MEDS ORDERED: MULTIVIT MINERALS PO SCH (09:00)
[2018-08-26] MEDS ORDERED: FERROUS GLUC PO SCH (09:00)
[2018-08-26] MEDS ORDERED: POTASSIUM CHLORIDE 20% 40 MEQ/15 ML UDC GT SCH ×2 (09:00)
[2018-08-26] MEDS ORDERED: POTASSIUM CHLORIDE 10 MEQ GT SCH (09:00)
[2018-08-26] MEDS ORDERED: ZONISAMIDE 200 MG GT SCH (09:00)
[2018-08-26] MEDS: ASCORBIC ACID 500 MG TAB PO SCH ×2 (09:57→21:19)
[2018-08-26] MEDS: CHOLECALCIFEROL 1,000 IU TAB GT SCH (09:57)
[2018-08-26] MEDS: LACTULOSE 20 GM/30 ML UDC GT SCH ×4 (09:57→21:17)
[2018-08-26] MEDS: POLYETHYLENE GLYCOL 17 GM/PKT GT SCH (09:57)
[2018-08-26] MEDS: levETIRAcetam 100 MG/ML ORASYR GT SCH ×2 (09:57→21:18)
[2018-08-26] MEDS: POTASSIUM CHLORIDE 20% 40 MEQ/15 ML UDC GT SCH (09:58)
[2018-08-26] MEDS: PHENYTOIN 100 MG/4 ML UDC PO SCH ×3 (09:59→16:57)
[2018-08-26] MEDS: SENNA 8.6 MG TAB PO SCH ×3 (09:59→16:57)
[2018-08-26] MEDS: DOCUSATE 100 MG/10 ML UDC GT SCH (10:00)
[2018-08-26] MEDS: ECOTRIN 81 MG TABEC PO SCH (10:00)
[2018-08-26] MEDS: SULFAMETH/TRIMETH DS 800/160MG 1 TAB PO SCH ×2 (10:00→21:18)
[2018-08-26] MEDS: FAMOTIDINE 20 MG TAB PO SCH ×2 (10:00→21:19)
[2018-08-26] MEDS: FOLIC ACID 1 MG TAB GT SCH (10:01)
[2018-08-26] MEDS: amLODIPine 5 MG TAB PO SCH (10:01)
[2018-08-26] MEDS: MULTIVITAMIN/MINERALS 15 ML UDBTL GT SCH (10:02)
[2018-08-26] MEDS: HYDROCHLOROTHIAZIDE 25 MG TAB GT SCH (10:02)
[2018-08-26] MEDS: Zonisamide 100 MG CAP GT SCH ×2 (10:03→21:18)
[2018-08-26] MEDS: ZONISAMIDE 50 MG GT SCH ×2 (10:03→21:18)
[2018-08-26] MEDS: LACTOBACILLUS RHAMNOSUS GG 1 EACH CAP PO SCH (10:14)
[2018-08-26] MEDS: METOCLOPRAMIDE 10 MG/10 ML SYRP UDC GT SCH ×2 (11:26→16:58)
--- NOTE | 2018-08-26 13:17 | NUR ---
PT'S CAREGIVER JEFFERSON CAME TO SEE PT, PT RESTING COMFORTABLY, GAVE AFTERNOON MEDS VIA G TUBE, 0CC GASTRIC RESIDUAL, AUSCULTATED PLACEMENT, CALL LIGHT WITHIN REACH, WILL CONTINUE TO MONITOR
--- NOTE | 2018-08-26 13:27 | NUR ---
SPOKE WITH PT'S SISTER, GAVE CONSENT FOR COLONOSCOPY PROCEDURE, CARDING MACHINE OPERATOR SIGNED. ASKED PT IF HE KNEW WHAT A COLONOSCOPY PROCEDURE WAS, PT DID NOT VERBALIZE UNDERSTANDING.
--- NOTE | 2018-08-26 14:00 | NUR ---
CANVASSING MANAGER STARTED NEW IV ON LEFT UPPER ARM 22G, PATENT AND INTACT, WILL CONTINUE TO MONITOR
--- NOTE | 2018-08-26 15:00 | NUR ---
ADMINISTERED FLEET ENEMA, PT TOLERATED WELL, WILL COME BACK TO CLEAN PT
--- NOTE | 2018-08-26 15:15 | NUR ---
STOOL GREEN, LIQUID, FOUL ODOR, CLEANED PT. BED LOW, BED ALARM ON, CALL LIGHT WITHIN REACH
[2018-08-26] MEDS: NACL 0.9% 1,000 ML IV SCH (15:22)
[2018-08-26 16:00] VITALS: BP 115/52
--- NOTE | 2018-08-26 16:00 | NUR ---
RESUMED G TUBE FEEDING GEVITY 1.2 AT 65ML/HR, 0CC RESIDUAL
[2018-08-26] MEDS ORDERED: BOWEL EVACUANT DRINK 4,000 ML PDS PO SCH (16:35)
--- NOTE | 2018-08-26 19:20 | NUR ---
GAVE BED SIDE REPORT TO NIGHT CLERK AUDITOR RN, PT AWAKE, ON RA, IN NO RESPIRATORY DISTRESS, IN NO PAIN, GOLYTELY AT BEDSIDE, G TUBE FEEDING GEVITY 1.2 RUNNING AT 65ML TURNED ON
--- NOTE | 2018-08-26 19:22 | NUR ---
RECEIVED REPORT FROM DAY SHIFT RN. PATIENT SLEEPING. NO SIGNS OF DISTRESS. SAFETY PRECAUTIONS IN PLACE.
[2018-08-26] MEDS: SIMVASTATIN 20 MG TAB GT SCH (21:19)
[2018-08-26] MEDS: LATANOPROST 0.005% OP 2.5 ML BTL OP SCH (21:19)
--- NOTE | 2018-08-26 21:30 | NUR ---
ADMINISTERED SCHEDULED MEDICATIONS, CLEANED PATIENT AND REPOSITIONED FOR COMFORT. PATIENT NOW RESTING WITH NO SIGNS OF DISTRESS ON RA.
--- NOTE | 2018-08-27 | NUR ---
PAUSED G-TUBE FEEDING.PATIENT IS NPO AFTER MIDNIGHT. ADMINISTERED 200 ML OF GO-LITEY. VITAL SIGNS STABLE. REPOSITIONED PATIENT FOR COMFORT.
[2018-08-27 00:03] VITALS: BP 134/75
--- NOTE | 2018-08-27 01:05 | NUR ---
ADMINISTERED 200 ML OF GO-LITEY. PATIENT IS TOLERATING WELL.
--- NOTE | 2018-08-27 02:30 | NUR ---
PATIENT HAS HAD 0CC GASTRIC RESIDUAL FROM G-TUBE PRIOR TO EACH ADMINISTRATION OF GO-LYTELY BOWEL PREP. HE HAS RECEIVED A TOTAL OF 2L OF THE BOWEL PREP BUT HAS NOT HAD A BOWEL MOVEMENT. PATIENT DID HAVE A BOWEL MOVEMENT JUST PRIOR TO THE BOWEL PREP. PATIENT ABDOMEN APPEARS MORE DISTENDED THAN AT SHIFT ASSESSMENT. PATIENT HAS NORMO-ACTIVE BOWEL SOUNDS IN BILATERAL UPPER QUADRANTS, BUT HYPO-ACTIVE BOWEL SOUNDS IN BILATERAL LOWER QUADRANTS. WILL REPORT FINDINGS TO DOCTOR.
--- NOTE | 2018-08-27 03:03 | NUR ---
DR. OVERTON CAME TO BEDSIDE TO ASSESS PATIENT. ABDOMEN IS DISTENDED BUT SOFT. PATIENT HAS LIMITED VERBAL SKILLS BUT ACKNOWLEDGED THAT THERE IS DISCOMFORT WITH A SLIGHT GRIMACE UPON PALPATION OF ABDOMEN. VITAL SIGNS ARE WITHIN BASELINE PARAMETERS WITH NO FEVER OR DIAPHORESIS. PER DR. OVERTON, HOLD THE GO-LYTELY AND ALLOW TIME FOR THE FLUID TO PASS THROUGH THE BOWELS.
--- NOTE | 2018-08-27 04:06 | NUR ---
PATIENT SLEEPING SOUNDLY. SNORING SLIGHTLY. NO SIGNS OF DISTRESS ON RA, SAFETY PRECAUTIONS IN PLACE.
--- NOTE | 2018-08-27 06:26 | NUR ---
DR. LITTLE AT BEDSIDE. ASSESSED PATIENT. PATIENT HAS NOT HAD BOWEL MOVEMENT ON MY SHIFT. MADE AWARE THAT 2L OF GOLYTELY HAS BEEN ADMINISTERED BUT NO STOOL OUTPUT. ALSO MADE AWARE THAT BED SCALE WAS 174LBS AT START OF SHIFT, AND IS NOW [address] LITTLE WILL CONSULT WITH DR. SINGH FOR FURTHER INSTRUCTIONS. POSSIBLE REPEAT ENEMA PRIOR TO SCHEDULED COLONOSCOPY. WILL ENDORSE TO DAY SHIFT TO LOOK OUT FOR POTENTIAL ORDER.
[2018-08-27 07:00] LABS: ANION GAP 14.7 (8-16); CARBON DIOXIDE 27.2 mmol/L (21-32); CHLORIDE 102 mmol/L (98-107); CREATININE 1.1 mg/dL (0.7-1.3); GLUCOSE 106 mg/dL (74-106); POTASSIUM 3.9 mmol/L (3.5-5.1); SODIUM SERUM 140 mmol/L (136-145); UREA NITROGEN, BLOOD 11 mg/dL (7-18)
[2018-08-27 07:05] LABS: MAGNESIUM 2.2 mg/dL (1.8-2.4)
--- NOTE | 2018-08-27 07:05 | NUR ---
RECEIVED BEDSIDE REPORT FROM FIRE SUPERVISOR RN, PT AWAKE, LIMITED VOCABULARY, SKIN INTACT, NO S/S OF RESPIRATORY DISTRESS ON ROOM AIR. G TUBE TO LUQ. NO FEEDING FORMULA RUNNING AT THIS TIME. IV LEFT AC RUNNING NS 10ML/HR, 22 G, CALL LIGHT WITHIN REACH, BED IN LOWEST POSITION, FIRE SUPERVISOR RN CARL STATED NO BM LAST NIGHT, GOLYTELY WAS ADMINISTERED TOTAL OF 2 L. CARL STATED SHE TALKED TO DR LITTLE AND STOP THE GOLYTELY AND GIVE SOAP SANAM ENEMA. WILL GIVE THE SOAP SANAM AND CONTINUE TO MONITOR
--- NOTE | 2018-08-27 07:18 | NUR ---
GAVE BEDSIDE REPORT TO DAY SHIFT RN. PATIENT IN STABLE CONDITION ON RA. STILL NO BOWEL MOVEMENT. ENDORSED TO DAY SHIFT FOR CONTINUITY OF CARE.
[2018-08-27 08:00] VITALS: BP 142/78
--- NOTE | 2018-08-27 08:00 | NUR ---
VITALS TAKEN, G TUBE RESIDUAL 0 ML.
[2018-08-27 08:10] LABS: BASOPHILS # (AUTO) 0.1 K/uL (0.00-0.22); BASOPHILS % (AUTO) 0.7 % (0.0-2.0); EOSINOPHILS # (AUTO) 0.4 K/uL (0-0.4); EOSINOPHILS % (AUTO) 4.6 % (0.0-4.0); HEMATOCRIT 38.3 % (36-52); LYMPHOCYTES # (AUTO) 2.4 K/uL (2.0-11.5); LYMPHOCYTES % (AUTO) 29.4 % (20.5-51.1); MEAN CORPUSCULAR HEMOGLOBIN 33 pg (27-31); MEAN CORPUSCULAR HGB CONC 34 g/dL (33-37); MEAN CORPUSCULAR VOLUME 96.5 fL (80-94); MONOCYTES # (AUTO) 1.1 K/uL (0.8-1.0); MONOCYTES % (AUTO) 13.6 % (1.7-9.3); NEUTROPHILS # (AUTO) 4.3 K/uL (1.8-7.7); NEUTROPHILS % (AUTO) 51.7 % (42.2-75.2); PLATELET COUNT (AUTO) 240 K/uL (140-450); RED BLOOD CELL COUNT(AUTO) 3.97 MIL/uL (4.20-6.10); RED CELL DISTRIBUTION WIDTH 12.4 % (11.6-13.7); WHITE BLOOD COUNT (AUTO) 8.3 K/uL (4.8-10.8)
--- NOTE | 2018-08-27 08:30 | NUR ---
SOAP SANAM ENEMA GIVEN. PT HAD LARGE GREEN WATERY STOOL.
--- NOTE | 2018-08-27 09:00 | NUR ---
REPORT TO DR LITTLE THAT PT'S ABD SEEMS LARGE, COULD BE DISTENDED. ASKED DR LITTLE IF HE STILL WANT TO GIVE GOLYTELY, DR STATED TO GIVE A LITTLE BIT MORE. ADMINISTERED ANOTHER 500ML.
[2018-08-27] MEDS: METOCLOPRAMIDE 10 MG/10 ML SYRP UDC GT SCH ×3 (10:00→17:06)
[2018-08-27] MEDS: MULTIVITAMIN/MINERALS 15 ML UDBTL GT SCH (10:01)
[2018-08-27] MEDS: LACTULOSE 20 GM/30 ML UDC GT SCH ×2 (10:02→12:36)
[2018-08-27] MEDS: PHENYTOIN 100 MG/4 ML UDC PO SCH ×3 (10:02→17:06)
[2018-08-27] MEDS: amLODIPine 5 MG TAB PO SCH (10:02)
[2018-08-27] MEDS: LACTOBACILLUS RHAMNOSUS GG 1 EACH CAP PO SCH (10:02)
[2018-08-27] MEDS: HYDROCHLOROTHIAZIDE 25 MG TAB GT SCH (10:03)
[2018-08-27] MEDS: POTASSIUM CHLORIDE 20% 40 MEQ/15 ML UDC GT SCH (10:03)
[2018-08-27] MEDS: FOLIC ACID 1 MG TAB GT SCH (10:03)
[2018-08-27] MEDS: ECOTRIN 81 MG TABEC PO SCH (10:03)
[2018-08-27] MEDS: FAMOTIDINE 20 MG TAB PO SCH ×2 (10:04→21:52)
[2018-08-27] MEDS: CHOLECALCIFEROL 1,000 IU TAB GT SCH (10:04)
[2018-08-27] MEDS: SENNA 8.6 MG TAB PO SCH ×2 (10:04→12:35)
[2018-08-27] MEDS: SULFAMETH/TRIMETH DS 800/160MG 1 TAB PO SCH ×2 (10:05→21:53)
[2018-08-27] MEDS: ASCORBIC ACID 500 MG TAB PO SCH ×2 (10:05→21:53)
[2018-08-27] MEDS: ZONISAMIDE 50 MG GT SCH ×2 (10:06→21:07)
[2018-08-27] MEDS: POLYETHYLENE GLYCOL 17 GM/PKT GT SCH (10:06)
[2018-08-27] MEDS: Zonisamide 100 MG CAP GT SCH ×2 (10:06→21:05)
[2018-08-27] MEDS: levETIRAcetam 100 MG/ML ORASYR GT SCH ×2 (10:32→21:03)
--- NOTE | 2018-08-27 12:00 | NUR ---
PT RESTING COMFORTABLY IN BED. NO S/S OF DISTRESS.
--- NOTE | 2018-08-27 15:21 | NUR ---
FLEET ENEMA GIVEN TO PT PER DR SINGH'S ORDER. PT LAID ON LEFT SIDE AND HAD WATERY GREEN STOOL.
[2018-08-27] MEDS: NACL 0.9% 1,000 ML IV SCH (15:22)
[2018-08-27 16:00] VITALS: BP 147/84
[2018-08-27] MEDS ORDERED: MAGNESIUM CITRATE 300 ML BTL GT SCH (16:00)
--- NOTE | 2018-08-27 16:16 | NUR ---
DR LITTLE CAME, STATED THAT PT'S ABD IS STILL SOFT AND STOOL IS WATERY BUT STILL THICK. HE WILL ORDER MAG CITRATE AND WANTS TO FINISH GOLYTELY TONIGHT. WILL ENDORSE THAT TO RETAIL PERSONAL BANKER.
[2018-08-27] MEDS: DEXT 5% /NACL 0.9% 1,000 ML IV SCH (17:05)
--- NOTE | 2018-08-27 18:17 | NUR ---
ADJUSTED IVF D5NS TO 50ML/HR. PT RESTING IN BED, NO DISTRESS
--- NOTE | 2018-08-27 19:20 | NUR ---
ENDORSED PT TO TABLET TECHNICIAN SIRISHA FLORES. PT IN STABLE CONDITION.
--- NOTE | 2018-08-27 19:22 | NUR ---
RECEIVED BEDSIDE REPORT FROM AM SHIFT RN, PT AWAKE, LIMITED VOCABULARY, SKIN INTACT, NO S/S OF RESPIRATORY DISTRESS ON ROOM AIR. G TUBE TO LUQ. NO FEEDING FORMULA RUNNING AT THIS TIME. DUE TO BOWEL PREP. IV LEFT AC RUNNING D5 NS 50ML/HR, G22 ,SINCE 12MIDNIGHT OF 08/27/18 NPO, AND STARTED 08/26/18 6PM GOLYTELY. RECEIVED APPROX 2000 ML REMAINING (TOTAL 4000ML TO BE GIVEN) . SOAP SANAM ENEMA GIVEN THIS AM. NO BM YET OF THIS TIME. ON FALL PRECAUTIONS. CONTINUE TO MONITOR
[2018-08-27] MEDS: SIMVASTATIN 20 MG TAB GT SCH (21:53)
[2018-08-27] MEDS: LATANOPROST 0.005% OP 2.5 ML BTL OP SCH (22:03)
--- NOTE | 2018-08-27 22:13 | NUR ---
PRODUCTIVE COUGH NOTED WILL GIVE COUGH MED
--- NOTE | 2018-08-27 22:22 | NUR ---
NO COUGH MEDS INFORMED DR. GARCIA PT HAS PRODUCTIVE COUGH, AND NAUSEA, BUT NO VOMITING. WILL ORDER. WILL CARRY OUT ORDERS
[2018-08-27] MEDS ORDERED: PROMETHAZINE 25 MG/ML VIAL ONE (22:29)
[2018-08-27] MEDS ORDERED: PROMETHAZINE 25 MG/ML VIAL IM PRN (22:30)
--- NOTE | 2018-08-27 23:03 | NUR ---
IVF LR FROM OR FINISHED INFUSING, GIVEN D5 NS AT 75 ML, PT AT FULL LIQ. DIET ORDERED IN THE MORNING FOR BRKFST YET.
--- NOTE | 2018-08-27 23:06 | NUR ---
IM PHENERGAN ADMINISTERED ON R DELTOID
[2018-08-28] VITALS: BP 141/77
--- NOTE | 2018-08-28 | NUR ---
PT TURNED AND REPOSITIONED EVERY 2 HRS. PT HAD A LARGE BOWEL MV, LIQUID IN FORM BUT W/ DARK GREEN SOLID STOOLS, (NOT CLEAR). ADMINISTERED 1000 ML OF GOLYTELEY OF THIS TIME
--- NOTE | 2018-08-28 02:10 | NUR ---
TURNED PT, CHANGED URINE NOTED. NO BM
--- NOTE | 2018-08-28 05:00 | NUR ---
PT HAD A LARGE BM, LIQUID IN FORM, LIGHT GREEN IN COLOR, STILL W/ MINIMAL SOLID PARTICLES. NOT CLEAR YET,BNUT JEWELRY DRILLING MACHINE OPERATOR THAN LAST BM. ADMINISTERED THE OTHER 1000MLAND FINISIHED UP GOLYTELY. PT CONTINUOUSLY EVACUATING STOOL.
[2018-08-28 06:00] VITALS: BP 154/84
--- NOTE | 2018-08-28 06:55 | NUR ---
AWARE OF HIGH BLOOD PRESSURE, 154/84, [place] 88; INFORMED HIM PT ABDOMEN IS DISTENDED.
--- NOTE | 2018-08-28 07:25 | NUR ---
RECEIVED REPORT FROM FIRER PORTABLE BOILER NURSE. PATIENT IS ALERT AWAKE AND ORIENTED X1. G-TUBE IS INTACT AND PATENT WITH NO FEEDING RUNNING AT THIS TIME. IV INTACT, PATENT, AND INFUSING IVF. ABDOMEN SLIGHTLY DISTENDED. FLACC 0. PLAN OF CARE REVIEWED WITH PATIENT. PATIENT UNABLE TO VERBALIZE UNDERSTANDING. SAFETY MEASURES IN PLACE, SIDEREAILS X2, BED IN LOWEST POSITION, AND CALL LIGHT IS WITHIN REACH. WILL CONTINUE TO MONITOR.
[2018-08-28 08:38] LABS: BASOPHILS # (AUTO) 0.1 K/uL (0.00-0.22); BASOPHILS % (AUTO) 0.8 % (0.0-2.0); EOSINOPHILS # (AUTO) 0.4 K/uL (0-0.4); EOSINOPHILS % (AUTO) 6.9 % (0.0-4.0); HEMATOCRIT 39.1 % (36-52); HEMOGLOBIN 13.6 g/dL (12.0-18.0); LYMPHOCYTES # (AUTO) 1.9 K/uL (2.0-11.5); MEAN CORPUSCULAR HEMOGLOBIN 33 pg (27-31); MEAN CORPUSCULAR HGB CONC 35 g/dL (33-37); MEAN CORPUSCULAR VOLUME 95.2 fL (80-94); MONOCYTES # (AUTO) 0.8 K/uL (0.8-1.0); NEUTROPHILS # (AUTO) 3.1 K/uL (1.8-7.7); NEUTROPHILS % (AUTO) 49.3 % (42.2-75.2); PLATELET COUNT (AUTO) 258 K/uL (140-450); RED CELL DISTRIBUTION WIDTH 12.9 % (11.6-13.7); WHITE BLOOD COUNT (AUTO) 6.3 K/uL (4.8-10.8)
[2018-08-28 08:47] LABS: ANION GAP 13.8 (8-16); CARBON DIOXIDE 27.2 mmol/L (21-32); CHLORIDE 103 mmol/L (98-107); CREATININE 1.1 mg/dL (0.7-1.3); GLUCOSE 122 mg/dL (74-106); SODIUM SERUM 141 mmol/L (136-145); UREA NITROGEN, BLOOD 7 mg/dL (7-18)
[2018-08-28 08:50] LABS: MAGNESIUM 2.5 mg/dL (1.8-2.4); PHOSPHORUS 2.1 mg/dL (2.5-4.9)
[2018-08-28] MEDS ORDERED: POTASSIUM CHLORIDE 40 MEQ, LIDOCAINE MPF 1% - 5 mL VIAL 25 MG in NACL 0.9% 250 ML IV ONE (09:00)
[2018-08-28] MEDS ORDERED: MAGNESIUM CITRATE 300 ML BTL GT SCH (09:10)
[2018-08-28] MEDS: levETIRAcetam 100 MG/ML ORASYR GT SCH (09:13)
[2018-08-28] MEDS: METOCLOPRAMIDE 10 MG/10 ML SYRP UDC GT SCH ×3 (09:14→17:16)
[2018-08-28] MEDS: POTASSIUM CHLORIDE 20% 40 MEQ/15 ML UDC GT SCH (09:15)
[2018-08-28] MEDS: LACTOBACILLUS RHAMNOSUS GG 1 EACH CAP PO SCH (09:16)
[2018-08-28] MEDS: PHENYTOIN 100 MG/4 ML UDC PO SCH ×3 (09:16→17:16)
[2018-08-28] MEDS: ASCORBIC ACID 500 MG TAB PO SCH (09:16)
[2018-08-28] MEDS: amLODIPine 5 MG TAB PO SCH (09:16)
[2018-08-28] MEDS: SULFAMETH/TRIMETH DS 800/160MG 1 TAB PO SCH (09:16)
[2018-08-28] MEDS: FOLIC ACID 1 MG TAB GT SCH (09:17)
[2018-08-28] MEDS: CHOLECALCIFEROL 1,000 IU TAB GT SCH (09:17)
[2018-08-28] MEDS: FAMOTIDINE 20 MG TAB PO SCH (09:19)
[2018-08-28] MEDS: HYDROCHLOROTHIAZIDE 25 MG TAB GT SCH (09:19)
--- NOTE | 2018-08-28 09:30 | NUR ---
ASSISTED FORM LAYER IN CLEANING AND REPOSITIONING PATIENT. STOOL LIGHT GREEN BUT NOT CLEAR. NOTIFIED DR. SINGH. ORDERED RECEIVED FOR SOAP SANAM ENEMA AND MAG CITRATE X 1 DOSE. WILL ADMINISTER. OTHER SCHEDULED MEDICATIONS DUE GIVEN. WILL CONTINUE TO MONITOR.
[2018-08-28] MEDS: MULTIVITAMIN/MINERALS 15 ML UDBTL GT SCH (09:32)
[2018-08-28] MEDS: ZONISAMIDE 50 MG GT SCH (09:33)
[2018-08-28] MEDS: Zonisamide 100 MG CAP GT SCH (09:34)
[2018-08-28] MEDS: DEXT 5% /NACL 0.9% 1,000 ML IV SCH (09:53)
[2018-08-28] MEDS ORDERED: POTASSIUM PHOSPHATE 15 MM in NACL 0.9% 250 ML IV ONE (10:00)
--- NOTE | 2018-08-28 11:01 | NUR ---
PATIENT LYING DOWN IN BED. SOAP SANAM ENEMA AND OTHER SCHEDULED MEDICATIONS DUE GIVEN. PATIENT CLEANED AND REPOSITIONED. HAD CELL POURER GREEN BM WITH SOAP SANAM ENEMA. WILL CONTINUE TO MONITOR
--- NOTE | 2018-08-28 11:49 | NUR ---
08/28/18 RD FOLLOW UP COMPLETED PLEASE REFER TO NUTRITION ASSESSMENT UNDER CARE ACTIVITY FOR ESTIMATED NUTRITIONAL NEEDS. 1. CONTINUE NPO MEDICALLY NECESSARY 2. RESTART TUBE FEEDING WITH JEVITY @ 65 ML/HR -THIS WILL PROVIDE 1560 ML, 1872 KCAL, AND 86 GM OF PROTEIN WHICH MEETS 100% OF ESTIMATED NEEDS 3. CONTINUE 140 ML OF FREE WATER FLUSH Q4H 4. RD TO FOLLOW-UP 2-3 DAYS, HIGH RISK LITZY [address] RD
--- NOTE | 2018-08-28 12:13 | NUR ---
ADMINISTERED SCHEDULED MEDICATIONS. FLACC 0. PATIENT RESTING IN BED. WILL CONTINUE TO MONITOR.
--- NOTE | 2018-08-28 14:50 | NUR ---
OR NURSES ON UNIT TO TAKE PATIENT FOR COLONOSCOPY. WILL CONTINUE TO MONITOR WHEN PATIENT BACK ON UNIT.
[2018-08-28] MEDS ORDERED: fentaNYL 0.05 MG/ML VIAL ONE (15:10)
[2018-08-28] MEDS ORDERED: MIDAZOLAM 2 MG/2 ML VIAL ONE ×2 (15:10→15:11)
[2018-08-28 16:00] VITALS: BP 146/74
--- NOTE | 2018-08-28 16:30 | NUR ---
PATIENT BACK ON MST UNIT. NO DISTRESS NOTED. FLACC 0. IVF CONNECTED BACK TO PATIENT. V/S STABLE. WILL CONTINUE TO MONITOR.
[2018-08-28] MEDS ORDERED: MIDAZOLAM 2 MG/2 ML VIAL IVP ONE (16:35)
[2018-08-28] MEDS ORDERED: fentaNYL 0.05 MG/ML VIAL IVP ONE (16:35)
[2018-08-28] MEDS ORDERED: MAGN1.7538 GT (17:28)
[2018-08-28] MEDS ORDERED: AMLO5TAB PO (17:28)
[2018-08-28] MEDS ORDERED: SENN-73 GT (17:28)
[2018-08-28] MEDS ORDERED: LUBI24SG4 GT (17:28)
[2018-08-28] MEDS ORDERED: AMLO5TAB GT (17:43)
--- NOTE | 2018-08-28 19:27 | NUR ---
ENDORSED TO SUPERVISOR REWORK NURSE FOR CONTINUITY OF CARE. PATIENT IS STABLE.
--- NOTE | 2018-08-28 19:28 | NUR ---
RECEIVED BEDSIDE REPORT FROM DAVID FLORES. PT IS ON ROOM AIR. AWAKE RESPONSIVE TO NAME. ABLE TO FOLLOW SIMPLE COMMAND. SKIN IS INTACT. ON G TUBE BEEN NPO FOR [address] SINGH TODAY 5/3 W/ POYPECTOMY X4. PT BEING DISCHARGE TODAY BACK TO [facility]. [phone]. PER NURSE WILL BE PICKED UP IN 20 MINUTES. PLAN OF CARE DISCUSSED. WILL CONTINUE TO MONITOR.
--- NOTE | 2018-08-28 19:59 | NUR ---
TRANSFERRED PATIENT TO WHEELCHAIR. IV REMOVED. IV CATH INTACT. ARM BAND REMOVED. VS:133/86 HR 74 97%, 16 98.4. PATIENT BEING D/C IN STABLE CONDITION WITH JEFFERSON FROM [facility].
== END 2018-08-28 20:00 | DRG 388 ==
LOC: MED 10:57 → MTU 15:27
PROVIDERS: ADMIT General Practice; ATTEND General Practice
PROC: 0DBF8ZZ Excision of Right Large Intestine, Via Natural or Artificial Opening Endoscopic (ICD-10-PCS; principal; 2018-08-28 18:55)
DX: K56.41 Fecal impaction (principal); K85.90 Acute pancreatitis without necrosis or infection, unspecified; N17.0 Acute kidney failure with tubular necrosis; K56.609 Unspecified intestinal obstruction, unspecified as to partial versus complete obstruction; J98.11 Atelectasis; N13.30 Unspecified hydronephrosis; K52.9 Noninfective gastroenteritis and colitis, unspecified; G40.909 Epilepsy, unspecified, not intractable, without status epilepticus; K21.9 Gastro-esophageal reflux disease without esophagitis; I10 Essential (primary) hypertension; F32.9 Major depressive disorder, single episode, unspecified; R73.03 Prediabetes; E78.5 Hyperlipidemia, unspecified; I25.10 Atherosclerotic heart disease of native coronary artery without angina pectoris; R74.0 Nonspecific elevation of levels of transaminase and lactic acid dehydrogenase [LDH]; K26.9 Duodenal ulcer, unspecified as acute or chronic, without hemorrhage or perforation; E83.41 Hypermagnesemia; H26.9 Unspecified cataract; E86.0 Dehydration; H52.10 Myopia, unspecified eye; F79 Unspecified intellectual disabilities; G80.9 Cerebral palsy, unspecified; H91.90 Unspecified hearing loss, unspecified ear; Z93.1 Gastrostomy status; Z87.440 Personal history of urinary (tract) infections; Z79.899 Other long term (current) drug therapy; Z90.49 Acquired absence of other specified parts of digestive tract
CPT/HCPCS: 36415; 43762; 71045; 74018; 74241; 76700; 80048; 80053; 80185; 81001; 82150; 82948; 83690; 83735; 83880; 84100; 84439; 84484; 85025; 85610; 85730; 87081; 87086; 88305; 93005; 99285; C1758; J1644; J2250; J2405; J2550; J3010; J7030; J7042; J8597; Q0092

== ENCOUNTER 2019-05-17 18:17 | Emergency (ER) | payer MEDICAID, OTHER ==
[~2019-05-17] VITALS: Ht 154.9 cm; Wt 70.8 kg
[~2019-05-17 18:17] MED LIST changes: +AMLO5TAB GT; -AMLO5TAB6 GT; -ASCO500S14 GT; +ASCO500T45 GT; -FERR140T2 GT; +FERR325E14 PO; +LACT10SO1 PO; -LACT10SO11 GT; -LAM25 GT; +LUBI24SG4 GT; +MAGN1.7538 GT; +PHEN100C3 PO; -PHENERGAN DM GT; +PROM6.2555 GT; -RANI150C GT; +RANI150C PO; +SENN-73 GT; +SIMV20TA1 GT; -SIMV20TA1 PO; -SULF-59 PO; +TRAV5SOL OP; +ZONI100C5 GT; -ZONI50CA2 GT; -[UNRECOGNIZED DRUG - CODE] GT
[2019-05-17 19:20] VITALS: BP 168/81
--- NOTE | 2019-05-17 19:20 | NUR ---
TO BED # 03 VIA WHEELCHAIR
--- NOTE | 2019-05-17 19:45 | NUR ---
73 Y/O MALE BIB CAREGIVER FROM [facility]. PT PRESENTS TO ED, WITH G TUBE REPLACEMENT. PT PULLED G-TUBE AROUND 1700 TODAY. PT DENIES ANY ABDOMINAL PAIN. NO N/V/D. CAREGIVER STATES DR MÁRQUEZ WILL PERFORM G-TUBE REPLACEMENT. G-TUBE SITE IS COVERED WITH GAUZE. NO BLEEDING/DRAINAGE NOTED. PT AMBULATES WITH WHEELCHAIR. PT VSS. ERMD AWARE. WILL CONTINUE TO MONITOR.
--- NOTE | 2019-05-17 19:53 | NUR ---
PATIENT LEFT WITHOUT BEING SEEN BY DR. CAI. NO FURTHER CARE PROVIDED FOR PATIENT.
--- NOTE | 2019-05-17 19:53 | NUR ---
PT LEFT WITHOUT BEING SEEN.
== END 2019-05-17 19:53 | disposition left against medical advice (07) ==
LOC: MED 18:17
DX: Z43.1 Encounter for attention to gastrostomy (principal); Z53.1 Procedure and treatment not carried out because of patient's decision for reasons of belief and group pressure

== ENCOUNTER 2020-05-08 16:01 | Emergency (ER) | payer OTHER, MEDICAID ==
[~2020-05-08] VITALS: Ht 172.7 cm; Wt 85.7 kg
[~2020-05-08 16:01] MED LIST changes: -ASCO500T45 GT; +ASCO500T95 GT; -MAGN1.7538 GT; +MAGN296S GT; +ZONI100C22 GT; -ZONI100C5 GT
[2020-05-08 16:30] VITALS: BP 138/99
--- NOTE | 2020-05-08 16:35 | NUR ---
PA Bhaskar with pt
--- NOTE | 2020-05-08 16:54 | NUR ---
Patient discharged with v/s stable. Written and verbal after care instructions given and explained. Patient verbalized understanding. Ambulatory with steady gait. All questions addressed prior to discharge. Advised to follow up with PMD.
== END 2020-05-08 16:54 | disposition home or self-care (01) ==
LOC: MED 16:01
DX: R63.3 Feeding difficulties (principal); K21.9 Gastro-esophageal reflux disease without esophagitis; I10 Essential (primary) hypertension; G40.909 Epilepsy, unspecified, not intractable, without status epilepticus; Z43.1 Encounter for attention to gastrostomy; Z79.899 Other long term (current) drug therapy; Z79.82 Long term (current) use of aspirin
CPT/HCPCS: 99281